=== PATIENT | female | born 1935 | race Caucasian/White ===

== ENCOUNTER 2018-07-24 07:57 | Outpatient (CLI) | payer MEDICARE ==
--- NOTE | 2018-07-24 11:05 | HP ---
DATE OF SERVICE: 07/24/2018 HISTORY OF PRESENT ILLNESS: Ms. Perfecto Shetty is a very pleasant 83-year-old accompanied by her daug hter who presents to the Wound Center for evaluation of a sacral pressure ulceration. The patient pr esently resides at an assisted living facility, [facility]. The patient's daughter states th at Ms. Shetty fell in 06/2017 and underwent left hip surgery, ORIF in [place], [place]. The patient's daughter states that Ms. Shetty remained in the hospital for 1 week after her fall. The patient's d aughter states that she was then transferred to [facility] where the sacral wound developed. At t his time the patient was being seen by Dr. Chappell and underwent intraoperative debridement of her sac ral wound. The patient was subsequently transferred to a jail care facility, [place] in [place] and underwent flap placement by Dr. Gabe Shultz. Subsequently, the patient received wound care b phil Negron. The patient was then transferred to [facility], also in [place] and since 2017 has been in her present facility in [facility]. The patient's daughter states that Dr. Chappell h as been seeing the patient for wound care since March of this year. The patient was referred to the und Center by Dr. Chappell on 07/08/2018. The patient's daughter states that treatments for the wound have included Betadine and Aquacel AG. PAST MEDICAL HISTORY: 1. Congestive heart failure. 2. Diabetes mellitus. 3. Coronary artery disease. 4. Hypertension. 5. Hypothyroidism. PAST SURGICAL HISTORY: 1. Intraoperative debridement of sacral pressure ulceration. 2. Flap placement for treatment of sacral pressure ulceration. 3. Cholecystectomy. 4. Back surgery x2. 5. Hysterectomy. 6. Pacemaker/defibrillator placement. 7. Left hip surgery, ORIF after a fall. MEDICATIONS: The patient does not have a list of her medications with her today. She states her med ications; however, include levothyroxine, Entresto, Januvia and magnesium. ALLERGIES: No known diagnosed allergies. SOCIAL HISTORY: Negative for tobacco use. The patient admits to the occasional consumption of alcoh ol. FAMILY HISTORY: Significant for coronary artery disease. The patient states that her sister, william r, grandfather and 2 brothers were diagnosed with coronary artery disease. Family history is also si gnificant for diabetes mellitus. The patient states that her mother and grandmother were both diagno sed with diabetes mellitus. PHYSICAL EXAMINATION: VITAL SIGNS: Temperature 97.8, pulse 66, respirations 20, blood pressure 141/63. Accu-Chek 123. GENERAL: This is an 83-year-old female lying on stretcher in examination room in no acute distress. HEENT: Normocephalic, atraumatic. NECK: No nuchal rigidity. CHEST: Clear to auscultation. CARDIAC: Regular rate and rhythm. ABDOMEN: Soft. EXTREMITIES: No clubbing or cyanosis. BACK: A sacral wound is present which measures approximately 2.2 x 4.2 cm. Granulation tissue is pr esent within the wound margins, albeit of poor quality. Nonviable tissue present within the wound ma rgins was debrided with an excisional full-thickness debridement. No purulent drainage is associated with the wound. No erythema of the skin surrounding the wound is present. No maceration of the ski n of the periwound is noted. NEUROLOGIC: Grossly nonfocal. ASSESSMENT AND PLAN: 1. Sacral pressure ulceration as described above. The dimensions of the wound today as stated above are approximately 2.2 x 4.2 cm. Dressing changes of Medihoney, gauze and Mepilex will be initiated today. These dressing changes are to be performed 3 times per week after cleansing and irrigation wi th the assistance of Home Health. No antibiotics will be prescribed today based upon the appearance of the wound. I will see Ms. Shetty again in 2 weeks. The importance of nutrition and offloading i n achieving the healing of the ulceration have been discussed with the patient and her daughter. Ord ers will be transmitted to Home Health for albumin and prealbumin levels. 2. Diabetes mellitus. The patient's Accu-Chek in clinic today is 123. The patient has been told th at for optimal wound healing, her blood glucoses should remain below 150. 3. Congestive heart failure. 4. Coronary artery disease. 5. Hypertension. 6. Hypothyroidism.
== END 2018-07-24 07:58 | disposition home or self-care (01) ==
LOC: WCC 07:57
PROVIDERS: ATTEND Family Medicine
DX: E11.622 Type 2 diabetes mellitus with other skin ulcer (principal); L89.159 Pressure ulcer of sacral region, unspecified stage; I11.0 Hypertensive heart disease with heart failure; I50.9 Heart failure, unspecified; I25.10 Atherosclerotic heart disease of native coronary artery without angina pectoris; E03.9 Hypothyroidism, unspecified
CPT/HCPCS: 36416

== ENCOUNTER 2018-08-15 10:05 | Outpatient (CLI) | payer MEDICARE ==
--- NOTE | 2018-08-15 12:30 | PRG ---
DATE OF SERVICE: 08/15/2018 HISTORY: Ms. Perfecto Shetty is a very pleasant 83-year-old accompanied by her daughter, who presents to the Wound Center for evaluation of a sacral pressure ulceration. The patient currently resides at [facility] in [facility]. The patient's daughter previously stated that Ms. Doreen rodriguez fell in 06/2017 and underwent left hip surgery, ORIF in [place], [place]. The patient's daughter st ated that Ms. Shetty remained in the hospital for 1 week after her fall. The patient's daughter sta socrates that she was then transferred to [facility] where the sacral wound developed. At this time, t he patient was being seen by Dr. Chappell and underwent intraoperative debridement of her sacral wound. The patient was subsequently transferred to a long-term care facility, [facility] in [place] and under went flap placement by Dr. Gabe Shultz. Subsequently, the patient received wound care by Dr. Gal patino. The patient was then transferred to [facility] also in [place] and since 05/17/2018 has be en in her present facility in [facility]. The patient's daughter stated that Dr. Chappell had been see ing the patient for wound care since March of this year. The patient was referred to the Wound Center by Dr. Chappell on 07/08/2018. The patient's daughter stated that treatments for the wound had include d Betadine and Aquacel AG. After being seen in the Wound Center, the patient was placed on dressing changes of Medihoney, gauze, and Mepilex 3 times per week after cleansing and irrigation with the [facility]. PHYSICAL EXAMINATION: VITAL SIGNS: Temperature 97.6, pulse 68, respirations 21, blood pressure 126/58. Accu-Chek 215. BACK: A sacral wound is present, which measures approximately 3.0 x 1.5 cm. The dimensions of the w ound at the time of the patient's visit on 07/24/2018 were approximately 2.2 x 4.2 cm. Granulation t issue is present within the wound margins again of poor quality. Nonviable tissue present within the wound margins was debrided with an excisional full-thickness debridement. No purulent drainage is a ssociated with the wound. No erythema of the skin surrounding the wound is present. No maceration o f the skin of the periwound is noted. ASSESSMENT AND PLAN: 1. Sacral pressure ulceration as described above. Dressing changes of Medihoney gauze and Mepilex w ill be continued 3 times per week after cleansing and irrigation with the assistance of Home Health. I will see Ms. Shetty again in 3 weeks. Again, the importance of nutrition and offloading in achie ving the healing of the ulceration had been discussed with the patient and her daughter. The results of the patient's lab work will be obtained. Specifically, the results of the albumin and prealbumin levels. 2. Diabetes mellitus. The patient's Accu-Chek in clinic today is 215. The patient has been reminde d that for optimal wound healing, her blood glucoses should remain below 150. 3. Congestive heart failure. 4. Coronary artery disease. 5. Hypertension. 6. Hypothyroidism.
[2018-08-15] MEDS ORDERED: Sodium Chloride 0.9% 15 ML NEB ONE (20:27)
== END 2018-08-15 10:06 | disposition home or self-care (01) ==
LOC: WCC 10:05
PROVIDERS: ATTEND Family Medicine
DX: E11.622 Type 2 diabetes mellitus with other skin ulcer (principal); L89.159 Pressure ulcer of sacral region, unspecified stage; I11.0 Hypertensive heart disease with heart failure; I50.9 Heart failure, unspecified; I25.10 Atherosclerotic heart disease of native coronary artery without angina pectoris; E03.9 Hypothyroidism, unspecified
CPT/HCPCS: 11042; 36416; A4218

== ENCOUNTER 2018-09-04 11:23 | Outpatient (CLI) | payer MEDICARE ==
--- NOTE | 2018-09-04 12:44 | PRG ---
DATE OF SERVICE: 09/04/2018 HISTORY: Ms. Perfecto Shetty is a very pleasant 83-year-old, accompanied by her daughter, who presents to the Wound Center for evaluation of a sacral pressure ulceration. The patient currently resides a assisted living facility, [place] [facility]. The patient's daughter previously stated that Ms. Franky brady fell in 06/2017 and underwent left hip surgery, ORIF, in [place], [place]. The patient's daughter stated that Ms. Shetty remained in the hospital for 1 week after her fall. The patient's daughter stated that she was then transferred to [facility] where the sacral wound developed. At this time , the patient was being seen by Dr. Bowles and underwent intraoperative debridement of her sacral wou nd. The patient was subsequently transferred to a long-term care facility, [facility] in [place], and u nderwent flap placement by Dr. Gabe Shultz. Subsequently, the patient received wound care by Dr. Negron. The patient was then transferred to [facility] also in [place], and since 05/17/2018 h as been in her present facility in [facility]. The patient's daughter stated that Dr. Bowles had bee n seeing the patient for wound care since March of this year. The patient was referred to the Wound Ce nter by Dr. Bowles on 07/08/2018. The patient's daughter stated that treatments for the wound had in cluded Betadine and Aquacel AG. After being seen in the Wound Center, the patient was placed on dres sing changes of Medihoney, gauze, and Mepilex 3 times per week after cleansing and irrigation with th e assistance of Home Health. PHYSICAL EXAMINATION: VITAL SIGNS: Temperature 97.7, pulse 72, respirations 18, blood pressure 169/68. BACK: A sacral wound is present, which measures approximately 3.4 x 1.5 cm. Granulation tissue is p resent within the wound margins. Nonviable tissue present within the wound margins was debrided with an excisional full-thickness debridement. No purulent drainage is associated with the wound. No er ythema of the skin surrounding the wound is present. No maceration of the skin of the periwound is n oted. ASSESSMENT AND PLAN: 1. Sacral pressure ulceration as described above. Dressing changes of Medihoney, gauze, and Mepilex will be continued 3 times per week after cleansing and irrigation with the assistance of Home Health . I will see Ms. Shetty again in 3 weeks. Again, the importance of nutrition and offloading in ach ieving the healing of the ulceration has been discussed with the patient and her daughter. 2. Diabetes mellitus. Accu-Cheks will be obtained at the time of the patient's clinic visits. The patient has been reminded that, for optimal wound healing, her blood glucoses should remain below 150 . 3. Congestive heart failure. 4. Coronary artery disease. 5. Hypertension. 6. Hypothyroidism.
[2018-09-04] MEDS ORDERED: Sodium Chloride 0.9% 15 ML NEB ONE (15:00)
== END 2018-09-04 11:24 | disposition home or self-care (01) ==
LOC: WCC 11:23
PROVIDERS: ATTEND Family Medicine
DX: E11.622 Type 2 diabetes mellitus with other skin ulcer (principal); L89.159 Pressure ulcer of sacral region, unspecified stage; I11.0 Hypertensive heart disease with heart failure; I50.9 Heart failure, unspecified; I25.10 Atherosclerotic heart disease of native coronary artery without angina pectoris; E03.9 Hypothyroidism, unspecified
CPT/HCPCS: 11042; A4218

== ENCOUNTER 2018-09-25 10:50 | Outpatient (CLI) | payer MEDICARE ==
[~2018-09-25 10:50] MED LIST: Sodium Chloride 0.9% 15 ML NEB ONE
--- NOTE | 2018-09-25 13:22 | PRG ---
DATE OF SERVICE: 09/25/2018 HISTORY: Ms. Perfecto Shetty is a very pleasant 83-year-old, accompanied by her daughter, who presents to the Wound Center for evaluation of a sacral pressure ulceration. The patient presently resides a t an assisted living facility [place] at [facility]. The patient's daughter states that Ms. Shetty pre viously received a trial of negative pressure therapy for her sacral pressure ulceration. Since the patient's last visit, Ms. Shetty has been receiving dressing changes of Medihoney with the assistanc e of Home Health. The patient has no complaints today. She denies any fever or chills. PHYSICAL EXAMINATION: VITAL SIGNS: Temperature 97.9, pulse 66, respirations 17, blood pressure 129/56 Accu-Chek 139. BACK: A sacral wound is present, which measures approximately 3.0 x 1.5 cm. Granulation tissue is p resent within the wound margins. Nonviable tissue present within the wound margins was debrided with an excisional full-thickness debridement. No purulent drainage is associated with the wound. No er ythema of the skin surrounding the wound is present. No maceration of the skin of the periwound is n oted. ASSESSMENT AND PLAN: 1. Sacral pressure ulceration as described above. Dressing changes of Medihoney, gauze, and Mepilex will be continued 3 times per week after cleansing and irrigation with the assistance of Home Health . I will see Ms. Shetty again in 4 weeks. Again, the importance of nutrition and offloading in ach ieving the healing of the ulceration has been discussed with both the patient and her daughter. 2. Diabetes mellitus. The patient's Accu-Chek in clinic today is 139. The patient has been reminde d that, for optimal wound healing, her blood glucoses should remain below 150. 3. Congestive heart failure. 4. Coronary artery disease. 5. Hypertension. 6. Hypothyroidism.
== END 2018-09-25 10:51 | disposition home or self-care (01) ==
LOC: WCC 10:50
PROVIDERS: ATTEND Family Medicine
DX: L89.159 Pressure ulcer of sacral region, unspecified stage (principal); E11.9 Type 2 diabetes mellitus without complications; I11.0 Hypertensive heart disease with heart failure; I50.9 Heart failure, unspecified; I25.10 Atherosclerotic heart disease of native coronary artery without angina pectoris; E03.9 Hypothyroidism, unspecified
CPT/HCPCS: 11042; A4218

== ENCOUNTER 2018-10-23 13:14 | Outpatient (CLI) | payer MEDICARE ==
--- NOTE | 2018-10-23 15:06 | PRG ---
DATE OF SERVICE: 10/23/2018 HISTORY: Ms. Perfecto Shetty is a very pleasant 83-year-old accompanied by her daughter, who presents to the Wound Center for evaluation of a sacral pressure ulceration. The patient currently resides at an assisted-living facility, [place] [facility]. The patient's daughter previously stated that Ms. Shetty received a trial of negative-pressure therapy for her sacral pressure ulceration. Since the patient's last visit, Ms. Shetty has been receiving dressing changes of Medihoney 3 times per week after cleansing and irrigation with the assistance of Home Health. Ms. Shetty has no complaints today. She denies any fever or chills. PHYSICAL EXAMINATION: VITAL SIGNS: Temperature 97.4, pulse 75, respirations 18, blood pressure 126/56. Accu-Chek 128. BACK: A sacral wound is present, which measures approximately 2.5 x 1.0 cm. The dimensions of the wound at the time of the patient's visit on 09/25/2018 were approximately 3.0 x 1.5 cm. Granulation tissue is present within the wound margins. No purulent drainage is associated with the wound. No erythema of the skin surrounding the wound is present. No laceration of the skin of the periwound is noted. Hyalomatrix was applied to the wound bed with the silicone layer facing outwards. The silicone layer was fenestrated prior to the application of Hyalomatrix to the bed of the sacral ulceration. The wound was then dressed with Adaptic, gauze and sacral Mepilex. The Hyalomatrix was held in place with the use of Steri-Strips and Mastisol. ASSESSMENT AND PLAN: 1. Sacral pressure ulceration as described above. Orders will be transmitted to Home Health for dressing changes of Adaptic, gauze and Mepilex sacral as needed until the patient's followup visit in 1 week. Orders will also be transmitted to the Home Health for the Hyalomatrix secured with Steri-Strips and Mastisol to be left intact at the time of any dressing changes. At the time of the patient's followup visit in 1 week, consideration will be given to another placement of Hyalomatrix. 2. Diabetes mellitus. The patient's Accu-Chek in clinic today in 128. The patient has been reminded that for optimal wound healing, her blood glucoses should remain below 150. 3. Congestive heart failure. 4. Coronary artery disease. 5. Hypertension. 6. Hypothyroidism. Job ID: [id number]
[2018-10-23] MEDS ORDERED: Sodium Chloride 0.9% 15 ML NEB ONE (18:00)
== END 2018-10-23 13:15 | disposition home or self-care (01) ==
LOC: WCC 13:14
PROVIDERS: ATTEND Family Medicine
DX: L89.159 Pressure ulcer of sacral region, unspecified stage (principal); E11.9 Type 2 diabetes mellitus without complications; I11.0 Hypertensive heart disease with heart failure; I50.9 Heart failure, unspecified; I25.10 Atherosclerotic heart disease of native coronary artery without angina pectoris; E03.9 Hypothyroidism, unspecified
CPT/HCPCS: A4218; Q4117

== ENCOUNTER 2018-10-30 11:12 | Outpatient (CLI) | payer MEDICARE | END 2018-10-30 11:13 | disposition home or self-care (01) | LOC: BICMAMMO 11:12 | PROVIDERS: ATTEND Internal Medicine | DX: Z12.31 Encounter for screening mammogram for malignant neoplasm of breast (principal); R92.1 Mammographic calcification found on diagnostic imaging of breast | CPT/HCPCS: 77063; 77067 ==

== ENCOUNTER 2018-10-30 12:50 | Outpatient (CLI) | payer MEDICARE ==
--- NOTE | 2018-10-30 15:01 | PRG ---
DATE OF SERVICE: 10/30/2018 HISTORY: Ms. Perfecto Shetty is a very pleasant 83-year-old, accompanied by her daughter, who presents to the Wound Center for evaluation of a sacral pressure ulceration. At the time of the patient's last visit, Hyalomatrix was applied to the wound bed of the sacral ulceration. The patient has no complaints today. She denies any fever or chills. PHYSICAL EXAMINATION: VITAL SIGNS: Temperature 97.4, pulse 72, respirations 17, and blood pressure 137/66. Accu-Chek 158. BACK: A sacral wound is present, which measures approximately 2.8 x 1.5 cm. Granulation tissue is present within the wound margins. No purulent drainage is associated with the wound. No cellulitis of the sacral region is appreciated. No maceration of the skin of the periwound is noted. ASSESSMENT AND PLAN: 1. Sacral pressure ulceration as described above. Dressing changes of Medihoney 3 times per week after cleansing and irrigation with the assistance of Home Health will be resumed. I will see Ms. Shetty again in 2 to 4 weeks. At this time, consideration will be given to another placement of Hyalomatrix. 2. Diabetes mellitus. The patient's Accu-Chek in clinic today is 158. The patient has been reminded that for optimal wound healing, her blood glucoses should remain below 150. 3. Congestive heart failure. 4. Coronary artery disease. 5. Hypertension. 6. Hypothyroidism. Job ID: [id number]
== END 2018-10-30 12:51 | disposition home or self-care (01) ==
LOC: WCC 12:50
PROVIDERS: ATTEND Family Medicine
DX: E11.622 Type 2 diabetes mellitus with other skin ulcer (principal); L89.159 Pressure ulcer of sacral region, unspecified stage; I25.10 Atherosclerotic heart disease of native coronary artery without angina pectoris; I11.0 Hypertensive heart disease with heart failure; I50.9 Heart failure, unspecified; E03.9 Hypothyroidism, unspecified
CPT/HCPCS: 36416

== ENCOUNTER 2018-12-02 11:35 | Outpatient (CLI) | payer MEDICARE ==
--- NOTE | 2018-12-02 14:03 | PRG ---
DATE OF SERVICE: 12/02/2018 HISTORY: Ms. Perfecto Shetty is a very pleasant 83-year-old, accompanied by her daughter, who presents to the Wound Center for evaluation of a sacral pressure ulceration. The patient has received treatment with Hyalomatrix for the ulceration. Since the patient's last visit, Ms. Shetty has been receiving dressing changes of Medihoney 3 times per week after cleansing and irrigation with the assistance of Home Health. The patient has no complaints today. She denies any fever or chills. PHYSICAL EXAMINATION: VITAL SIGNS: Temperature 97.7, pulse 73, and blood pressure 141/64. BACK: A sacral wound is present, which measures approximately 2.7 x 0.7 x 0.7 cm. Granulation tissue is present within the wound margins. No purulent drainage is associated with the wound. No erythema of the skin surrounding the wound is present. No maceration of the skin of the periwound is noted. ASSESSMENT AND PLAN: 1. Sacral pressure ulceration as described above. Dressing changes of Medihoney 3 times per week after cleansing and irrigation with the assistance of Home Health will be continued. I will see Ms. Shetty again in 4 weeks. 2. Diabetes mellitus. Accu-Cheks will be obtained at the time of the patient's clinic visits. The patient has been reminded that for optimal wound healing, her blood glucoses should remain below 150. 3. Congestive heart failure. 4. Coronary artery disease. 5. Hypertension. 6. Hypothyroidism. Job ID: [id number]
== END 2018-12-02 11:36 | disposition home or self-care (01) ==
LOC: WCC 11:35
PROVIDERS: ATTEND Family Medicine
DX: L89.159 Pressure ulcer of sacral region, unspecified stage (principal); E11.9 Type 2 diabetes mellitus without complications; I11.0 Hypertensive heart disease with heart failure; I50.9 Heart failure, unspecified; I25.10 Atherosclerotic heart disease of native coronary artery without angina pectoris; E03.9 Hypothyroidism, unspecified
CPT/HCPCS: 97602; A4218

== ENCOUNTER 2019-01-01 13:21 | Outpatient (CLI) | payer MEDICARE ==
--- NOTE | 2019-01-01 14:01 | PRG ---
DATE OF SERVICE: 01/01/2019 HISTORY: Ms. Perfecto Shetty is a very pleasant 83-year-old, accompanied by her daughter, who presents to the Wound Center for evaluation of a sacral pressure ulceration. The patient has received treatment with Hyalomatrix for the ulceration. Since the patient's last visit, Ms. Shetty has been receiving dressing changes of Medihoney 3 times per week after cleansing and irrigation with the assistance of Home Health. Ms. Shetty has no complaints today. She denies any fever or chills. PHYSICAL EXAMINATION: VITAL SIGNS: Temperature 97.6, pulse 71, respirations 21, blood pressure 152/60. Accu-Chek 138. BACK: A sacral wound is present, which measures approximately 1.2 x 0.5 cm. Granulation tissue is present within the wound margins. No purulent drainage is associated with the wound. No erythema of the skin surrounding the wound is present. No maceration of the skin of the periwound is noted. ASSESSMENT AND PLAN: 1. Sacral pressure ulceration as described above. Dressing changes of Medihoney 3 times per week after cleansing and irrigation with the assistance of Home Health will be continued. I will see Ms. Shetty again in 4 weeks. 2. Diabetes mellitus. The patient's Accu-Chek in clinic today is 138. The patient has been reminded that for optimal wound healing. Her blood glucoses should remain below 150. 3. Congestive heart failure. 4. Coronary artery disease. 5. Hypertension. 6. Hypothyroidism. Job ID: [id number]
== END 2019-01-01 13:22 | disposition home or self-care (01) ==
LOC: WCC 13:21
PROVIDERS: ATTEND Family Medicine
DX: L89.159 Pressure ulcer of sacral region, unspecified stage (principal); I11.0 Hypertensive heart disease with heart failure; I50.9 Heart failure, unspecified; E11.9 Type 2 diabetes mellitus without complications; I25.10 Atherosclerotic heart disease of native coronary artery without angina pectoris; E03.9 Hypothyroidism, unspecified
CPT/HCPCS: 97602; A4218

== ENCOUNTER 2019-01-30 14:01 | Outpatient (CLI) | payer MEDICARE ==
--- NOTE | 2019-01-30 13:34 | PRG ---
DATE OF SERVICE: 01/30/2019 HISTORY: Ms. Perfecto Shetty is a very pleasant 83-year-old, accompanied by her daughter, who presents to the Wound Center for evaluation of a sacral pressure ulceration. The patient has received treatment with Hyalomatrix for the ulceration. Since the patient's last visit, Ms. Shetty has been receiving dressing changes of Medihoney 3 times per week after cleansing and irrigation with the assistance of Home Health. The patient has no complaints today. She denies any fever or chills. PHYSICAL EXAMINATION: VITAL SIGNS: Temperature 97.5, pulse 83, blood pressure 148/60, Accu-Chek 141. BACK: A sacral wound is present, which measures approximately 1.1 x 0.5 cm. The dimensions of the wound at the time of the patient's last visit were approximately 1.2 x 0.5 cm. Granulation tissue is present within the wound margins albeit of poor quality. No purulent drainage is associated with the wound. No erythema of the skin surrounding the wound is present. No maceration of the skin of the periwound is noted. ASSESSMENT AND PLAN: 1. Sacral pressure ulceration as described above. Dressing changes of Medihoney 3 times per week after cleansing and irrigation with the assistance of Home Health will be continued. I will see Ms. Shetty again in 4 weeks. 2. Diabetes mellitus. The patient's Accu-Chek in clinic today is 141. The patient has been reminded that for optimal wound healing, her blood glucoses should remain below 150. 3. Congestive heart failure. 4. Coronary artery disease. 5. Hypertension. 6. Hypothyroidism. Job ID: [id number]
[2019-01-30] MEDS ORDERED: Sodium Chloride 0.9% 15 ML NEB ONE (18:00)
== END 2019-01-30 14:02 | disposition home or self-care (01) ==
LOC: WCC 14:01
PROVIDERS: ATTEND Family Medicine
DX: E11.622 Type 2 diabetes mellitus with other skin ulcer (principal); L89.159 Pressure ulcer of sacral region, unspecified stage; I11.0 Hypertensive heart disease with heart failure; I50.9 Heart failure, unspecified; I25.10 Atherosclerotic heart disease of native coronary artery without angina pectoris; E03.9 Hypothyroidism, unspecified
CPT/HCPCS: 97602; A4218

== ENCOUNTER 2019-03-06 15:13 | Outpatient (CLI) | payer MEDICARE ==
--- NOTE | 2019-03-06 15:19 | PRG ---
DATE OF SERVICE: 03/06/2019 HISTORY: Ms. Perfecto Shetty is a very pleasant 83-year-old, accompanied by her daughter, who presents to the Wound Center for evaluation of a sacral pressure ulceration. The patient has received treatment with Hyalomatrix for the ulceration. Since the patient's last visit, Ms. Shetty has been receiving dressing changes of Medihoney 3 times per week after cleansing and irrigation with the assistance of Home Health. The patient has no complaints today. She denies any fever or chills. The patient will be seeing Dr. Webber next week. PHYSICAL EXAMINATION: VITAL SIGNS: Stable. Afebrile. Accu-Chek 124. BACK: A sacral wound is present, which measures approximately 1.0 x 0.3 cm. The dimensions of the wound at the time of the patient's last visit were approximately 1.1 x 0.5 cm. Granulation tissue is present within the wound margins albeit of poor quality. No purulent drainage is associated with the wound. No erythema of the skin surrounding the wound is present. No maceration of the skin of the periwound is noted. ASSESSMENT AND PLAN: 1. Sacral pressure ulceration as described above. Dressing changes of Medihoney will be continued 3 times per week after cleansing and irrigation with the assistance of Home Health. I will see Ms. Shetty again in 5 weeks. The patient has an appointment with Dr. Webber in 1 week. 2. Diabetes mellitus. The patient's Accu-Chek in clinic today is 124. The patient has been reminded that for optimal wound healing, her blood glucoses should remain below 150. 3. Congestive heart failure. 4. Coronary artery disease. 5. Hypertension. 6. Hypothyroidism. Job ID: [id number]
== END 2019-03-06 15:14 | disposition home or self-care (01) ==
LOC: WCC 15:13
PROVIDERS: ATTEND Family Medicine
DX: E11.622 Type 2 diabetes mellitus with other skin ulcer (principal); L98.429 Non-pressure chronic ulcer of back with unspecified severity; I11.0 Hypertensive heart disease with heart failure; I50.9 Heart failure, unspecified; I25.10 Atherosclerotic heart disease of native coronary artery without angina pectoris; E03.9 Hypothyroidism, unspecified
CPT/HCPCS: 36416

== ENCOUNTER 2019-04-23 16:23 | Outpatient (CLI) | payer MEDICARE ==
--- NOTE | 2019-04-23 13:39 | PRG ---
DATE OF SERVICE: 04/23/2019 HISTORY: Ms. Perfecto Shetty is a very pleasant 83-year-old, accompanied by her daughter, who presents to the [facility] for evaluation of a sacral pressure ulceration. The patient has received treatment with Hyalomatrix for her ulceration. Since the patient's last visit, Ms. Shetty has been receiving dressing changes of Medihoney 3 times per week after cleansing and irrigation with the assistance of Home Health. The patient has no complaints today. She denies any fever or chills. Since the patient's last visit to the Wound Center, Ms. Shetty has been seen by Dr. Webber, who did not recommend surgical closure of the patient's sacral ulceration. PHYSICAL EXAMINATION: VITAL SIGNS: Temperature 97.5, pulse 80, respirations 16, and blood pressure 86/55. Accu-Chek 103. BACK: A sacral wound is present, which measures approximately 2.0 x 0.8 cm. Granulation tissue is present within the wound margins, still of poor quality. No purulent drainage is associated with the wound. No erythema of the skin surrounding the wound is present. No maceration of the skin of the periwound is noted. ASSESSMENT AND PLAN: 1. Sacral pressure ulceration as described above. Dressing changes of Medihoney alginate are to be performed 3 times per week after cleansing and irrigation with the assistance of Home Health. I will see Ms. Shetty again in 6 weeks. 2. Diabetes mellitus. The patient's Accu-Chek in clinic today is 103. The patient has been reminded that for optimal wound healing her blood glucoses should remain below 150. 3. Congestive heart failure. 4. Coronary artery disease. 5. Hypertension. 6. Hypothyroidism. Job ID: [id number]
[2019-04-23] MEDS ORDERED: Sodium Chloride 0.9% 15 ML NEB ONE (18:00)
== END 2019-04-23 16:24 | disposition home or self-care (01) ==
LOC: WCC 16:23
PROVIDERS: ATTEND Family Medicine
DX: E11.622 Type 2 diabetes mellitus with other skin ulcer (principal); L89.159 Pressure ulcer of sacral region, unspecified stage; I11.0 Hypertensive heart disease with heart failure; I50.9 Heart failure, unspecified; I25.10 Atherosclerotic heart disease of native coronary artery without angina pectoris; E03.9 Hypothyroidism, unspecified
CPT/HCPCS: 97602; A4218

== ENCOUNTER 2019-06-04 13:31 | Outpatient (CLI) | payer MEDICARE ==
--- NOTE | 2019-06-04 11:42 | PRG ---
DATE OF SERVICE: 06/04/2019 HISTORY: Ms. Perfecto Shetty is a very pleasant 84-year-old, accompanied by her daughter, who presents to the [facility]ound Center for evaluation of a sacral pressure ulceration. The patient has received treatment with Hyalomatrix for her ulceration. Since the patient's last visit, Ms. Shetty has been receiving dressing changes of Medihoney 3 times per week after cleansing and irrigation with the assistance of Home Health. The patient has no complaints today. She denies any fever or chills. The patient was recently seen by Dr. Webber, who did not recommend surgical closure of the patient's sacral ulceration. PHYSICAL EXAMINATION: VITAL SIGNS: Temperature 97.6, pulse 88, respirations 21, and blood pressure 126/60. Accu-Chek 95. BACK: A sacral wound is present, which measures approximately 1.5 x 0.3 cm. The dimensions of the wound at the time of the patient's visit on 04/23/2019 were approximately 2.0 x 0.8 cm. A tunnel at the inferior aspect of the wound is present and is approximately 1 cm in length. Granulation tissue is present within the wound margins, albeit of poor quality. No purulent drainage is associated with the wound. No erythema of the skin surrounding the wound is present. No maceration of the skin of the periwound is noted. ASSESSMENT AND PLAN: 1. Sacral pressure ulceration as described above. Dressing changes of Medihoney alginate will be continued 3 times per week after cleansing and irrigation with the assistance of Home Health. I will see Ms. Shetty again in 6 weeks. 2. Diabetes mellitus. The patient's Accu-Chek in clinic today is 95. The patient has been reminded that for optimal wound healing, her blood glucoses should remain below 150. 3. Congestive heart failure. 4. Coronary artery disease. 5. Hypertension. 6. Hypothyroidism. Job ID: [id number]
== END 2019-06-04 13:32 | disposition home or self-care (01) ==
LOC: WCC 13:31
PROVIDERS: ATTEND Family Medicine
DX: L89.159 Pressure ulcer of sacral region, unspecified stage (principal); E11.9 Type 2 diabetes mellitus without complications; I25.10 Atherosclerotic heart disease of native coronary artery without angina pectoris; I11.0 Hypertensive heart disease with heart failure; I50.9 Heart failure, unspecified
CPT/HCPCS: 97602; A4218

== ENCOUNTER 2019-07-23 10:47 | Outpatient (CLI) | payer MEDICARE ==
--- NOTE | 2019-07-23 11:16 | PRG ---
DATE OF SERVICE: 07/23/2019 HISTORY: Ms. Perfecto Shetty is a very pleasant 84-year-old, accompanied by her daughter, who presents to the wound center for evaluation of a sacral pressure ulceration. The patient has received treatment with Hyalomatrix for her ulceration. Since the patient's last visit, Ms. Shetty has been receiving dressing changes of Medihoney alginate three times per week after cleansing and irrigation with the assistance of home health. The patient has no complaints today. She denies any fever or chills. The patient has been seen by Dr. Webber, who did not recommend surgical closure of the patient's sacral ulceration. PHYSICAL EXAMINATION: VITAL SIGNS: Temperature 97.8, pulse 84, respirations 19, and blood pressure 166/60. Accu-Chek 130. BACK: A sacral wound is present, which measures approximately 1.2 x 0.4 cm. The dimensions of the wound at the time of the patient's visit on 06/04/2019 were approximately 1.5 x 0.3 cm. A tunnel at the inferior aspect of the wound is present and is approximately 1.5 cm in length. Granulation tissue is present within the wound margins albeit of poor quality. No purulent drainage is associated with the wound. No erythema of the skin surrounding the wound is present. No maceration of the skin of the periwound is noted. ASSESSMENT AND PLAN: 1. Sacral pressure ulceration as described above. Dressing changes of Medihoney alginate will be discontinued. Dressing changes of Hydrofera Blue will be initiated today. These dressing changes are to be performed 3 times per week after cleansing and irrigation with the assistance of home health. I will see Ms. Shetty again in 6 to 8 weeks. 2. Diabetes mellitus. The patient's Accu-Chek in clinic today is 130. The patient has been reminded that for optimal wound healing, her blood glucoses should remain below 150. 3. Congestive heart failure. 4. Coronary artery disease. 5. Hypertension. 6. Hypothyroidism. Job ID: [id number]
== END 2019-07-23 10:48 | disposition home or self-care (01) ==
LOC: WCC 10:47
PROVIDERS: ATTEND Family Medicine
DX: E11.622 Type 2 diabetes mellitus with other skin ulcer (principal); L89.159 Pressure ulcer of sacral region, unspecified stage; I11.0 Hypertensive heart disease with heart failure; I50.9 Heart failure, unspecified; I25.10 Atherosclerotic heart disease of native coronary artery without angina pectoris; E03.9 Hypothyroidism, unspecified
CPT/HCPCS: A4218

== ENCOUNTER 2019-10-30 11:08 | Outpatient (CLI) | payer MEDICARE ==
--- NOTE | 2019-10-30 17:04 | PRG ---
DATE OF SERVICE: 10/30/2019 SUBJECTIVE: Ms. Perfecto Shetty is a very pleasant 84-year-old accompanied by her daughter, who presents to the [facility]ound Center for evaluation of a sacral pressure ulceration. The patient has received treatment with Hyalomatrix for her ulceration. Since the patient's last visit to the Wound Center on 07/23/2019, the patient has been receiving most recently dressing changes of PluroGel three times per week after cleansing and irrigation. The patient has no complaints today. She denies any fever or chills. The patient has been seen by Dr. Webber, who did not recommend surgical closure of the patient's sacral ulceration. OBJECTIVE: VITAL SIGNS: Temperature 98.1, pulse 67, blood pressure 153/67. Accu-Chek 124. BACK: A sacral wound is present, which measures approximately 0.9 x 0.3 cm. The dimensions of the wound at the time of the patient's visit on 07/23/2019 were approximately 1.2 x 0.4 cm. A tunnel at the 12 o'clock position is present and is approximately 0.9 cm in length. Granulation tissue is present within the wound margins, albeit of poor quality. No purulent drainage is associated with the wound. No erythema of the skin surrounding the wound is present. No maceration of the skin of the periwound is noted. ASSESSMENT AND PLAN: 1. Sacral pressure ulceration as described above. Dressing changes of PluroGel will be continued 3 times per week after cleansing and irrigation. The preceding dressing changes are to be performed with the assistance of Home Health. I have asked the patient to schedule a followup appointment in the [facility] in 4 weeks. 2. Diabetes mellitus. The patient's Accu-Chek in clinic today is 124. The patient has been reminded that for optimal wound healing, her blood glucoses should remain below 150. 3. Congestive heart failure. 4. Coronary artery disease. 5. Hypertension. 6. Hypothyroidism. Job ID: [id number]
== END 2019-10-30 11:09 | disposition home or self-care (01) ==
LOC: WCC 11:08
PROVIDERS: ATTEND Family Medicine
DX: E11.622 Type 2 diabetes mellitus with other skin ulcer (principal); L89.159 Pressure ulcer of sacral region, unspecified stage; I11.0 Hypertensive heart disease with heart failure; I50.9 Heart failure, unspecified; I25.10 Atherosclerotic heart disease of native coronary artery without angina pectoris; E03.9 Hypothyroidism, unspecified

== ENCOUNTER 2019-12-10 10:36 | Outpatient (CLI) | payer MEDICARE ==
--- NOTE | 2019-12-10 11:37 | MMO ---
Bilateral MAMMO Bilat Screen [facility]. CLINICAL HISTORY: Patient is 84 years old and is seen for screening. The patient has no family history of breast cancer. The patient has no personal history of cancer. The patient has a history of bilateral Excisional Biopsy more than 10 years ago - benign. VIEWS: The views performed were: bilateral craniocaudal with tomosynthesis and bilateral mediolateral oblique with tomosynthesis. FILMS COMPARED: The present examination has been compared to prior imaging studies performed at [facility] on 01/01/2015, 01/24/2016, 01/29/2017 and 10/30/2018. This study has been interpreted with the assistance of computer-aided detection. MAMMOGRAM FINDINGS: There are scattered fibroglandular densities. Finding 1: There are stable benign appearing calcifications seen in both breasts. Finding 2: There are stable post operative changes seen in both breasts. There are no suspicious masses, suspicious calcifications, or new areas of architectural distortion. IMPRESSION: THERE IS NO MAMMOGRAPHIC EVIDENCE OF MALIGNANCY. A ROUTINE FOLLOW-UP MAMMOGRAM IN 1 YEAR IS RECOMMENDED. THE RESULTS OF THIS EXAM WERE SENT TO THE PATIENT. ACR BI-RADS Category 2 - Benign finding MAMMOGRAPHY NOTE: 1. A negative mammogram report should not delay a biopsy if a dominant of clinically suspicious mass is present. 2. Approximately 10% to 15% of breast cancers are not detected by mammography. 3. Adenosis and dense breasts may obscure an underlying neoplasm. Reported by: LINDA URRUTIA MD Electonically Signed: [id number]
== END 2019-12-10 10:37 | disposition home or self-care (01) ==
LOC: BICMAMMO 10:36
PROVIDERS: ATTEND Internal Medicine
DX: Z12.31 Encounter for screening mammogram for malignant neoplasm of breast (principal); Z91.89 Other specified personal risk factors, not elsewhere classified
CPT/HCPCS: 77063; 77067

== ENCOUNTER 2020-07-22 10:52 | Inpatient (IN) | payer MEDICARE, OTHER ==
--- NOTE | 2020-07-22 11:47 | RAD ---
RIGHT HIP 2 VIEWS: Date: 07/22/2020 PROVIDED CLINICAL HISTORY: Pain status post injury. FINDINGS: There is a displaced intertrochanteric right proximal femoral fracture with associated coxa vara. Rig ht hip joint space appears maintained. Alignment appears otherwise anatomic. No additional fracture i s evident. IMPRESSION: Displaced intertrochanteric right proximal femoral fracture. POS: SOHEILA
[2020-07-22] MEDS ORDERED: Ondansetron PF 4 MG/2 ML Vial ONE (12:46)
[2020-07-22] MEDS ORDERED: Morphine 4 MG/ML VIAL ONE ×2 (12:46→16:34)
--- NOTE | 2020-07-22 12:47 | RAD ---
XR Chest 1 View Portable History: Fall Comparison: None. Findings: Lungs are clear. Heart size is enlarged. Old right humeral neck fracture. AICD/pacer leads appear in good position. Multiple mid thoracic spine compression deformities are age indeterminate given lack of comparison ex ams. Impression: 1. No acute intrathoracic abnormality. 2. Mild cardiomegaly. 3. Multiple mid thoracic spine compression deformities are age indeterminate given lack of comparison exams.
--- NOTE | 2020-07-22 12:48 | RAD ---
RIGHT WRIST RADIOGRAPHS 3 VIEWS: DATE: 07/22/2020. PROVIDED CLINICAL HISTORY: Pain status post injury. FINDINGS: There is diffuse regional osteopenia. On the lateral view, there is evidence for cortical disruption involving the dorsal margin of the distal radius, without displacement. No additional fracture is e vident. Alignment appears anatomic. Joint spaces appear preserved. IMPRESSION: 1. Nondisplaced fracture involving the dorsal aspect of the distal radius. 2. Conspicuous regional osteopenia. POS: SOHEILA
[2020-07-22] MEDS ORDERED: CEFAZOLIN 2 GM in Premix Bag 1 BAG IVPB SCH (13:30)
[2020-07-22 13:46] LABS: #Basophils 0.1 thou/uL (0.0-0.2); #Eosinphils 0.2 thou/uL (0.0-0.7); #Lymphocytes 2.1 thou/uL (1.20-3.40); #Monocytes 0.6 thou/uL (0.11-0.59); #Neutrophils 11.5 thou/uL (1.40-6.50); %Basophils 0.7 % (0.0-1.0); %Eosinophils 1.2 % (0.0-10.0); %Lymphocytes 14.7 % (21.0-51.0); %Neutrophils 79.5 % (42.0-75.0); Hemoglobin 10.8 g/dL (12.0-16.0); Mean Corpuscular HGB CONC 31.5 g/dL (32.0-36.0); Mean Corpuscular Hemoglobin 31.3 pg (27.0-31.0); Mean Corpuscular Volume 99.6 fL (78.0-98.0); Mean Platelet Volume 7.5 fL (7.4-10.4); Platelet Count 191 thou/uL (130-400); RBC Distribution Width 12.7 % (11.5-14.5); Red Blood Cell (RBC) Count 3.45 mill/uL (4.20-5.40); White Blood Cell (WBC) Count 14.5 thou/uL (4.8-10.8)
[2020-07-22 13:54] LABS: INR-International Normal Ratio 1.1; Prothrombin Time 13.7 sec (12.0-14.7)
--- NOTE | 2020-07-22 14:04 | RAD ---
Exam: One view pelvis HISTORY: Fall. Pain. FINDINGS: Diffuse bony mineralization. Previous left hip fracture with incompletely evaluated patient hardware. No perihardware lucency. There is a right intertrochanteric fracture. Visualized bony pelvis appears to be intact. IMPRESSION: Right intertrochanteric fracture.
[2020-07-22 14:13] LABS: Troponin I 0.026 ng/mL (< 0.028)
--- NOTE | 2020-07-22 14:26 | CON ---
DATE OF CONSULTATION: 07/22/2020 CHIEF COMPLAINT: Right hip pain. HISTORY OF PRESENT ILLNESS: Ms. Shetty is an 85-year-old female who has fallen at her nursing facility. She was up walking with her walker. She tripped on some rocks outside. She fell and landed on her right hip and wrist. She had pain and was unable to ambulate. She was taken to the emergency department. X-rays have shown an intertrochanteric right femur fracture. She has also been found to have a distal radius fracture on the right. She has received pain control. She denies hitting her head. She has been alert since her injury. She uses a walker at baseline. PAST MEDICAL HISTORY: Cardiac arrhythmia with pacemaker. She denies other active medical problems. PAST SURGICAL HISTORY: Pacemaker placement as well as multiple low back surgeries in the past. She has had no recent surgery. ALLERGIES: NO KNOWN DRUG ALLERGIES. MEDICATIONS: A full medication list is available in the chart. The patient does not take blood thinners. FAMILY MEDICAL HISTORY: Noncontributory. REVIEW OF SYSTEMS: Positive for right hip and right wrist pain. PHYSICAL EXAMINATION: VITAL SIGNS: Stable. The patient is normotensive, 98% on room air. GENERAL: She is alert, lying supine, in no apparent distress. HEENT: Normocephalic and atraumatic. RESPIRATORY: Breathing comfortably. ABDOMEN: Soft, nontender, and nondistended. CARDIOVASCULAR: Pulses palpable peripherally. MUSCULOSKELETAL: The patient's right leg has shortening in external rotation. She has pain with hip motion. Skin is intact about the hip. She is able to flex and extend the foot and ankle. Her right hand has swelling over her thumb as well as the wrist. She can make a composite fist. She can flex and extend the wrist. IMAGING STUDIES: X-rays of the right wrist demonstrate a nondisplaced dorsal distal radial fracture. The patient has advanced osteopenia. The fracture appears to be incomplete through the distal radius. Pelvic x-ray and right hip x-ray demonstrates an intertrochanteric femur fracture with slight displacement. This is acute. IMPRESSION: 1. Right intertrochanteric femur fracture. 2. Right nondisplaced distal radial fracture. PLAN: At this point, the patient will need surgical intervention. Our goal will be to stabilize the femur, so she can get out of bed early and mobilize. Surgery will allow pain relief as well. We will plan for intramedullary nail fixation of the proximal femur. Her wrist can be treated in a wrist brace. She wants to proceed. She will need preoperative optimization. She will also need preoperative COVID test, which will be done on a rapid basis. We will keep her n.p.o. Hopefully, we can proceed to surgery this afternoon. Job ID: [id number]
[2020-07-22 14:41] LABS: ALT (SGPT) 12 U/L (8-55); AST (SGOT) 40 U/L (5-34); Albumin 3.3 g/dL (3.4-4.8); Alkaline Phosphatase 107 U/L (40-110); Anion Gap 12 mmol/L (10-20); BUN (Urea Nitrogen) 14 mg/dL (9.8-20.1); Bilirubin, Total 0.4 mg/dL (0.2-1.2); Calc. Creatinine Clearance 0 mL/min (70-130); Calcium 9.4 mg/dL (7.8-10.44); Carbon Dioxide 25 mmol/L (23-31); Chloride 101 mmol/L (98-107); Estimated GFR-MDRD 78; Globulin 3.1 g/dL (2.4-3.5); Glucose 136 mg/dL (83-110); Magnesium 1.6 mg/dL (1.6-2.6); Potassium 4.6 mmol/L (3.5-5.1); Protein, Total 6.4 g/dL (6.0-8.3); Sodium 133 mmol/L (136-145)
[2020-07-22] MEDS ORDERED: Dextrose 5% in Water 1,000 ML IV PRN (14:57)
[2020-07-22] MEDS ORDERED: Insulin Regular 300 UNITS/3 ML VIAL SC PRN (14:57)
[2020-07-22] MEDS ORDERED: Ondansetron PF 4 MG/2 ML Vial IVP PRN (14:57)
[2020-07-22] MEDS ORDERED: hydrALAZINE 20 MG/ML VIAL SLOW IVP PRN (14:57)
[2020-07-22] MEDS ORDERED: Dextrose 50% Abboject 50 ML SYRINGE SLOW IVP PRN (14:57)
[2020-07-22] MEDS ORDERED: traMADol HCl 50 MG TAB PO PRN (15:01)
--- NOTE | 2020-07-22 15:17 | CT ---
CT thoracic spine noncontrast: 07/22/2020 HISTORY: 85-year-old female with thoracic spinal pain, status post trauma due to fall COMPARISON: None FINDINGS: There are compression fractures at multiple levels, including: T3: Shallow broad depression of superior endplate with approximately 20-35% loss of height. T6: Biconvex indentations of superior and inferior endplates. Greatest loss of height is centrally lo cated, approximately 50-75%. T7: Shallow broad indentations of superior and inferior endplates. Maximum loss of height centrally a pproximately 20-50%. T8: Biconcave broad depressions of superior and inferior endplates. Maximum velocity of height centra lly approximately 75-80%. T11:Biconcave broad depressions of superior and inferior endplates. Maximum velocity of height centra lly approximately 75-80%. L1: Broad indentations of superior and inferior endplates. Maximum loss of height centrally approxima tely 30-70% Minimal bony retropulsion of posterior superior endplate of L1. No high-grade bony retropulsion and n o high-grade central spinal canal stenosis, at any level. No moderate sized or large hematoma in the perivertebral space. No definite linear fracture lucencies identified. Nonspecific heterogeneous changes in posterior aspects of bilateral lungs within limited [id number]. No high-grade scoliosis. Diffuse osteopenia. Ankylosis between the T9 and T10 vertebral bodies. IMPRESSION: 1. Multiple osteoporotic compression fractures. At least most are probably chronic. Without prior maria dies, it is difficult to determine which, if any, are acute or subacute. 2. Ankylosis at T9-10.
--- NOTE | 2020-07-22 15:34 | CT ---
Exam: Lumbar spine CT without contrast HISTORY: Trauma. Pain. COMPARISON: None FINDINGS: Diffuse bone demineralization. 5 lumbar type vertebra. Visualized solid organs, paraspinal muscles and alimentary canal. Appropriate attenuation. Limited evaluation the contents of the central spinal canal and neural foramina. T11-T12: No high-grade central canal stenosis or high-grade neural foraminal narrowing T12-L1: No high-grade central canal stenosis or high-grade neural foraminal narrowing L1-L2: Broad-based disc bulge. No significant central canal stenosis or significant neural foraminal narrowing L2-L3: Broad-based disc bulge, ligament flavum thickening and facet hypertrophy. Mild central canal s tenosis and mild bilateral neural foraminal narrowing L3-L4: Broad-based disc bulge, ligament flavum thickening and facet view. Moderate central canal sten osis. Moderate bilateral neural foraminal narrowing L4-L5: No evidence of high-grade central canal stenosis or high-grade foraminal narrowing L5-S1: No evidence of high-grade central canal stenosis or high-grade neural foraminal narrowing There is a mild chronic compression fracture at T12. Severe compression fracture along the mid body o f L2, chronic. There is a acute fracture along the superior left endplate at L4. Acute upon chronic compression fracture is suspected. There is moderate loss of vertebral body height. There is retropul marion with at least moderate central canal stenosis. There is a fracture involving the midline and right sacral promontory. There is a small amount of ass ociated fluid/hematoma and stranding of the free sacral fat with extension of posttraumatic change into the right pelvis/piriformis muscles. IMPRESSION: 1. Sacral promontory fracture with associated posttraumatic edema in the presacral fat and extending along the right hemipelvis 2. Acute L4 compression fracture upon a chronic compression fracture. There is retropulsion with mode rate central canal stenosis. 3. Severe compression of the mid L2 vertebral body. Chronic T12 vertebral body fracture with mild los s of vertebral body height..
[2020-07-22] MEDS ORDERED: Magnesium 2 GM/50 ML 2 GM in Premix Bag 1 BAG IVPB SCH (17:00)
[2020-07-22] MEDS ORDERED: Sodium Phosphate 15 MMOL in Sodium Chloride 0.9% 250 ML 250 ML IVPB SCH (17:00)
--- NOTE | 2020-07-22 17:54 | HP ---
TRAUMA SURGEON: Dr. Bass. CONSULTING PHYSICIAN: Dr. Alas. HISTORY OF PRESENT ILLNESS: The patient is an 85-year-old female, who presented to the emergency department after she had a mechanical fall in the lobby of the hospital. The patient had come for imaging studies. Subsequently, on her way out, her walker got hung up on some rocks and she fell onto her right side. She was evaluated in the emergency department and found to have a right intertrochanteric femur fracture and a right distal radius fracture. She does have quite a significant cardiac history with AICD placement. She reports she does not use any oxygen at home and gets around fairly well with her walker. She occasionally has swelling in her legs and is a very poor historian about her medications. She lives at the [facility], which is an assisted living facility and gets assistance with her medications there. Her daughter is involved in her care. At the time of my evaluation, the patient complained of right hip and lower back pain. She does have a history of previous back surgery and pain. She reports her pain is a little bit worse than previously. She denies anticoagulation use and loss of consciousness. She denies shortness of breath, chest pain, swelling, cough, nausea, vomiting, or lightheadedness. REVIEW OF SYSTEMS: All additional 10-point review of systems negative except as indicated above. PAST MEDICAL HISTORY: Congestive heart failure with a pacemaker and AICD, diabetes, coronary artery disease, hypertension, hypothyroidism, Parkinson's, AFib, depression, osteoporosis, left bundle-branch block, angina, essential tremor. PAST SURGICAL HISTORY: Pacemaker and AICD placement, sacral wound debridement, cholecystectomy, back surgery, hysterectomy, and left hip surgery due to fracture. SOCIAL HISTORY: The patient denies any history of drug, tobacco, or alcohol use. She lives at an assisted living facility and gets around fairly well with a walker. MEDICATIONS: 1. Atorvastatin. 2. Carbidopa/levodopa. 3. Carvedilol. 4. Donepezil. 5. Entresto. 6. Lasix. 7. Gabapentin. 8. Levothyroxine. 9. Magnesium oxide. 10. Metformin. 11. MiraLAX. 12. Zofran. 13. Oxybutynin chloride. 14. Primidone. 15. Protonix. 16. Sertraline. 17. Refresh solution eye drops. 18. Extra Strength Tylenol. 19. Voltaren gel. ALLERGIES: NO KNOWN DRUG ALLERGIES. PHYSICAL EXAMINATION: VITAL SIGNS: Temperature 98.7, pulse 85, respirations 20, oxygen saturation 99% on 2 L nasal cannula, blood pressure 152/65. PRIMARY SURVEY: Airway intact. Adequate breath sounds bilaterally. 2+ pulses in the bilateral radials, femorals, and DPs. GCS 15. Gross motor and sensation intact. No lacerations, bruising, or external bleeding. SECONDARY SURVEY: HEAD: Normocephalic. No gross palpable skull deformities. EYES: Pupils 3 to 2, equal, round, reactive to light bilaterally. ENT: No signs of trauma. C-SPINE: No step-offs or deformities. Nontender. C-collar in place. ABDOMEN: Soft, nontender, nondistended. PELVIS: Stable to palpation. RECTAL: Deferred. GENITOURINARY: Deferred. EXTREMITIES: Right lower extremity very slightly shorter than compared to the left with right-sided anterior and medial thigh tenderness. No abrasions or ecchymosis noted. She does have some tenderness with a splint on the right upper extremity. 2+ pulses in bilateral radials, femorals, and DPs. BACK/SPINE: No step-offs or deformity. Tenderness to the lower spine. No abrasions or ecchymosis. NEUROLOGIC: 5/5 strength in the bilateral housekeeper home, plantarflexion, dorsiflexion. Gross normal sensation x4 extremities. LABORATORY FINDINGS: White count 14.5, hemoglobin 10.8, hematocrit 34.3, platelets 191. INR 1.1. Sodium 133, potassium 4.6, chloride 101, bicarb 25, BUN 14, creatinine 0.71, glucose 136, phosphorus 3.0, magnesium 1.6. Total bilirubin 0.4, AST 40, ALT 12, and alkaline phosphatase 104. Troponin 0.026. BNP 176. DIAGNOSTIC FINDINGS: X-ray of the right hip demonstrates displaced intertrochanteric right proximal femoral fracture. X-ray of the right wrist demonstrates nondisplaced fracture involving the dorsal aspect of the distal radius conspicuous region. Chest x-ray demonstrates no acute intrathoracic abnormalities. X-ray of the pelvis demonstrates right intertrochanteric fracture. CT scan of the L-spine demonstrates sacral promontory fracture with associated posttraumatic edema in the postsacral fat and extending along the right hemipelvis, acute L4 compression fracture upon a chronic compression fracture, there is retropulsion with moderate central canal stenosis, severe compression of the mid L2 vertebral body, chronic T12 vertebral body fracture with mild loss of vertebral body height. CT scan of the T-spine demonstrates multiple osteoporotic compression fractures at least most are probably chronic without prior study. It is difficult to determine which if any are acute and/or subacute ankylosis of T9 through 10. ASSESSMENT: 1. Status post mechanical fall from standing. 2. Right intertrochanteric femur fracture. 3. Right distal radius fracture. 4. Acute L4 compression fracture upon a chronic fracture with retropulsion and moderate canal stenosis. 5. Severe compression fracture of L2 vertebral body. 6. History of pacemaker/automatic implantable cardioverter-defibrillator, congestive heart failure, diabetes, coronary artery disease, hypertension, hypothyroidism, Parkinson's, atrial fibrillation, depression, and chronic sacral wound. PLAN: The patient will be admitted to the Trauma Service. Dr. Alas would like to take the patient to the OR for the right intertrochanteric femur fracture. Right radius will be treated with a splint. We will update Dr. Alas to the patient's sacral fracture. We will consult Neurosurgery as well for her lumbar spine fractures, which are acute and chronic and we will follow up on their recommendations. In the meantime, we will maintain L-spine immobilization. I did speak with the patient's traffic ii manager and pants closer. They were able to give some information about the patient's previous history. The patient does have an AICD due to a previous ejection fraction of 20% in 2016. Her most recent echo was in 2019 with EF of 65%. She is not on any anticoagulation. There is no history of valvular disease. She has had a cardiac stent in 2016 after a catheterization. The patient's EKG is unconcerning. Her troponin is indeterminate. She has no active signs of heart failure. She denies chest pain, shortness of breath, nausea, or vomiting. We will complete an echo preoperatively to determine her heart function now. If there are any further concerns requiring evaluation by Cardiology, we will consult them after we have received the echo read. The patient will likely go to the OR tomorrow. This patient was discussed with Dr. Bass before this dictation. Job ID: [id number]
[2020-07-22 18:09] VITALS: BMI 24.7
[2020-07-22] MEDS: Acetaminophen 500 MG TAB PO SCH (18:11)
[2020-07-22] MEDS: traMADol HCl 50 MG TAB PO PRN (18:48)
[2020-07-22 19:11] LABS: Bilirubin Negative (Negative); Blood, Urine Trace (Negative); Clarity Turbid (Clear); Glucose, Urine (Dipstick) Normal (Negative); Ketone, Urine Trace mg/dL (Negative); Leukocyte 75 Leu/uL (Negative); Nitrite Negative (Negative); Protein, Urine (Dipstick) Negative (Neg-Trace); RBC/HPF 0-3 HPF (0-3); Specific Gravity, Urine 1.009 (1.002-1.036); Squamous Epithelial None Seen HPF (0-3); Urobilinogen 3 mg/dL (Less than 2); WBC/HPF 0-3 HPF (0-3); pH, Urine 5.5 (5.0-9.0)
[2020-07-22] MEDS: Morphine 2 MG/ML VIAL SLOW IVP PRN (19:21)
[2020-07-22 19:25] LABS: Bacteria/HPF 1+ HPF (None Seen); Urine Culture Reflex Yes Yes
[2020-07-22] MEDS: Famotidine/PF 20 mg/2ml Vial SLOW IVP SCH (19:49)
[2020-07-22] MEDS: Senokot S 8.6-50 MG TAB PO SCH (19:49)
--- NOTE | 2020-07-22 21:44 | PRG ---
DATE OF SERVICE: 07/22/2020 I have not yet met Perfecto Wilkinsaudraclifton. Evidently, she was in the hospital, getting some testing done and was leaving the lobby when her walker got caught and she fell. She was brought to the emergency department, where radiographic examinations revealed a hip fracture, a sacral promontory fracture, and some perhaps new and definitely old thoracic and lumbar compression fractures. None of the compression fractures are surgically treatable. If she has acute tenderness in the thoracic spine, then a thoracic spinal orthosis may be needed. If there is acute tenderness in the lumbar spine, then a lumbosacral orthosis may be needed. If both areas are tender, then a TLSO may be needed, but that is the best we can do for pain control. We will see her tomorrow morning. There is no surgical intervention we can offer. Job ID: [id number]
[2020-07-23] MEDS: Acetaminophen 500 MG TAB PO SCH ×4 (00:51→17:54)
[2020-07-23 05:12] LABS: #Basophils 0.1 thou/uL (0.0-0.2); #Eosinphils 0.1 thou/uL (0.0-0.7); #Lymphocytes 2.1 thou/uL (1.20-3.40); #Monocytes 0.7 thou/uL (0.11-0.59); #Neutrophils 4.5 thou/uL (1.40-6.50); %Basophils 0.7 % (0.0-1.0); %Eosinophils 0.9 % (0.0-10.0); %Lymphocytes 28.7 % (21.0-51.0); %Monocytes 9.3 % (0.0-10.0); %Neutrophils 60.4 % (42.0-75.0); Hemoglobin 8.3 g/dL (12.0-16.0); Mean Corpuscular HGB CONC 32.3 g/dL (32.0-36.0); Mean Corpuscular Hemoglobin 31.2 pg (27.0-31.0); Mean Corpuscular Volume 96.3 fL (78.0-98.0); Mean Platelet Volume 7.5 fL (7.4-10.4); Platelet Count 145 thou/uL (130-400); RBC Distribution Width 12.4 % (11.5-14.5); Red Blood Cell (RBC) Count 2.66 mill/uL (4.20-5.40); White Blood Cell (WBC) Count 7.4 thou/uL (4.8-10.8)
[2020-07-23 05:24] LABS: Anion Gap 11 mmol/L (10-20); BUN (Urea Nitrogen) 16 mg/dL (9.8-20.1); Calc. Creatinine Clearance 61 mL/min (70-130); Calcium 8.9 mg/dL (7.8-10.44); Carbon Dioxide 26 mmol/L (23-31); Chloride 102 mmol/L (98-107); Estimated GFR-MDRD 82; Glucose 113 mg/dL (83-110); Magnesium 2.3 mg/dL (1.6-2.6); Phosphorus 5.2 mg/dL (2.3-4.7); Potassium 4.4 mmol/L (3.5-5.1); Sodium 135 mmol/L (136-145)
[2020-07-23] MEDS: Morphine 2 MG/ML VIAL SLOW IVP PRN (05:31)
--- NOTE | 2020-07-23 06:14 | PRG ---
DATE OF SERVICE: 07/23/2020 The patient is currently on the surgical floor. She was admitted yesterday status post ground level fall in which she sustained a right intertrochanteric femur fracture, nondisplaced right radius fracture and acute lumbar spine fracture. The patient overnight was made n.p.o. for repair of her right hip. Her right wrist and spinal fractures will be treated in braces. The nurses report no issues. At the time of my visit, the patient was asleep. Her vital signs were stable and she was afebrile. Postoperatively, the patient will begin physical and occupational therapy and we will work on placement at that time. Job ID: [id number]
[2020-07-23] MEDS ORDERED: CEFAZOLIN 2 GM in Premix Bag 1 BAG IVPB SCH (06:45)
--- NOTE | 2020-07-23 08:39 | CON ---
DATE OF CONSULTATION: HISTORY OF PRESENT ILLNESS: Ms. Shetty is an 85-year-old female, who presents to the emergency department with a chief complaint of fall. She was getting some testing done at the hospital today and when she was leaving the lobby, her walker got caught and she fell. Her imaging revealed a hip fracture and a sacral fracture and a thoracic and lumbar compression fracture. REVIEW OF SYSTEMS: CONSTITUTIONAL: Denies fever or chills. EAR, NOSE, AND THROAT: Denies change in vision or hearing. CARDIAC: Denies chest pain, shortness of breath, or diaphoresis. PULMONARY: Denies shortness of breath, cough, or hemoptysis. GI: Denies abdominal pain, nausea, vomiting, diarrhea, change in stool formation and consistency. : Denies trouble with urination, frequency of urination, bloody urine. SKIN: Denies skin rash, bruising, bleeding, skin masses. MUSCULOSKELETAL: As per history of present illness. NEUROLOGICAL: As per history of present illness. PSYCHOLOGICAL: As per history of present illness. PAST MEDICAL HISTORY: Cardiac arrhythmia with pacemaker. PAST SURGICAL HISTORY: Multiple lower back surgeries, pacemaker placement. MEDICATIONS: 1. Atorvastatin 10 mg. 2. Carvedilol 3.125 mg. 3. Carbidopa/levodopa 25-100 mg. 4. Donepezil 10 mg. 5. Entresto 24-26 mg. 6. Furosemide 20 mg. 7. Gabapentin 300 mg. 8. Levothyroxine 100 mcg. 9. Magnesium oxide 400 mg. 10. Metformin 500 mg. 11. MiraLAX 17 g/dose. 12. Ondansetron 4 mg. 13. Oxybutynin 5 mg. 14. Primidone 50 mg. 15. Protonix 20 mg. 16. Polyvinyl alcohol 1.4%-0.6% ophthalmic. 17. Sertraline 50 mg. 18. Tylenol Extra Strength 500 mg. PHYSICAL EXAMINATION: VITAL SIGNS: Blood pressure 112/60, pulse 81, respiratory rate 18, temperature 98.6. HEENT: Pupils are equal. Extraocular movements are intact. NECK: Soft, supple. No masses are noted. Range of motion is intact and nonpainful. NEUROLOGICAL: Awake, alert, and oriented x3. Memory, attention, fund of knowledge normal. Cranial nerves are grossly intact. EXTREMITIES: Upper and lower extremities, the patient is unable to move right leg due to hip fracture. Rest of her extremities, she has free active range of motion. There is no focal motor weakness in her other extremities. No reflex asymmetry in her other extremities. PLAN: On exam, I had two nurses help me move Ms. Shetty on her left side, so I was able to palpate her entire spine. There was no acute tenderness in her thoracic or lumbar spine. She just complained of severe pain in her right leg due to her hip fracture. There is no surgical intervention Neurosurgery can offer at this time. Most likely chronic compression fracture. If patient complains of pain in her spine, may brace with TLSO for 8 weeks. She will follow up in our clinic for x-rays and appointments at 2 and 8 weeks. Job ID: [id number] [facility]
[2020-07-23] MEDS ORDERED: LEVODOPA PO SCH (09:00)
[2020-07-23] MEDS ORDERED: Pantoprazole 40 MG GRANULES PACKET PO SCH (09:00)
[2020-07-23] MEDS ORDERED: CARBIDOPA PO SCH (09:00)
[2020-07-23] MEDS: Carvedilol 25 MG TAB PO SCH ×2 (09:28→20:47)
[2020-07-23] MEDS: Levothyroxine Sodium 100 MCG TAB PO SCH (09:31)
[2020-07-23] MEDS: Carbidopa/Levodopa 25-100 mg Tablet PO SCH ×4 (09:31→20:48)
[2020-07-23] MEDS: Polyethylene Glycol 3350 17 GM Packet PO SCH (09:31)
[2020-07-23] MEDS: Oxybutynin ER 5 MG TAB PO SCH (09:31)
[2020-07-23] MEDS: Primidone 50 MG TAB PO SCH ×2 (09:32→20:48)
[2020-07-23] MEDS: Senokot S 8.6-50 MG TAB PO SCH ×2 (09:34→20:49)
[2020-07-23] MEDS ORDERED: Lidocaine 1% PF 5 ML VIAL ONE (11:53)
[2020-07-23] MEDS ORDERED: PHENYLEPHRINE-NS 100 MCG/ML 10 ML SYRINGE ONE (11:53)
[2020-07-23] MEDS ORDERED: Rocuronium Bromide 10 MG/ML (10ML VIAL) ONE (11:53)
[2020-07-23] MEDS ORDERED: PROPOFOL 200 MG/20 ML VIAL ONE (11:53)
[2020-07-23] MEDS ORDERED: Ondansetron PF 4 MG/2 ML Vial ONE (11:53)
[2020-07-23] MEDS: Famotidine/PF 20 mg/2ml Vial SLOW IVP SCH (12:14)
[2020-07-23] MEDS ORDERED: cefOXitin Sodium/Dextrose 2 GM/50 ML BAG ONE (12:51)
[2020-07-23] MEDS ORDERED: Fentanyl 100 MCG/2 ML VIAL ONE ×2 (13:25→15:05)
[2020-07-23] MEDS ORDERED: Bupivacaine HCl 0.5%/Epinephrine 1:200,000/PF 30 ml Vial ONE (14:25)
[2020-07-23] MEDS ORDERED: SUGAMMADEX SODIUM 200 MG/2 ML VIAL ONE (14:29)
--- NOTE | 2020-07-23 14:44 | RAD ---
Radiograph right hip 2 views: 07/23/2020 HISTORY: 85-year-old female with intertrochanteric fracture due to fall COMPARISON: 07/22/2020 1 view pelvis radiograph FINDINGS: Fluoroscopic spot images obtained with C-arm in the OR. There has been interval reduction of the varus angulation. There has been placement of dynamic compre ssion screw with distal tip in the femoral head, connected to short intramedullary nail with distal tip at proximal diaphysis with single stabilization screw distally. IMPRESSION: Status post reduction and dynamic compression screw fixation of the acute, traumatic, displaced, angu lated intertrochanteric fracture of right proximal femur.
[2020-07-23] MEDS ORDERED: Ondansetron ODT 4 MG TAB PO PRN ×2 (14:54→14:58)
[2020-07-23] MEDS ORDERED: Polyvinyl Alcohol 1.4%/Povidone 0.6% Opth Drops EA EYE PRN (14:54)
[2020-07-23] MEDS ORDERED: Acetaminophen 500 MG TAB PO PRN (14:54)
[2020-07-23] MEDS ORDERED: Diclofenac 1% 100 GM GEL TP PRN (14:54)
[2020-07-23] MEDS ORDERED: Fleet Enema 133 ML BOT PR PRN (14:58)
[2020-07-23] MEDS ORDERED: Bisacodyl 10 MG SUPP PR PRN (14:58)
[2020-07-23] MEDS ORDERED: Milk Of Magnesia 30 ML UDCUP PO PRN (14:58)
[2020-07-23] MEDS ORDERED: Ondansetron PF 4 MG/2 ML Vial IVP PRN (14:58)
[2020-07-23] MEDS ORDERED: Cepastat Lozenges 1 LOZ PO PRN (14:58)
--- NOTE | 2020-07-23 15:05 | PRG ---
DATE OF SERVICE: 07/23/2020 SUBJECTIVE: The patient was seen this morning during rounds. She was lying in bed with no signs of acute distress. She is n.p.o. today to go to the OR for fixation of her right intertrochanteric femur fracture. At the time of my evaluation, the patient reported her pain was well controlled. OBJECTIVE: VITAL SIGNS: Temperature 98.5, pulse 75, respirations 18, oxygen saturation 92% on 2 L nasal cannula, blood pressure 135/69. GENERAL: Well-appearing elderly female, lying in bed with no signs of acute distress. PULMONARY: Equal chest rise and fall. No signs of acute respiratory distress. CARDIAC: Regular rate and rhythm. GI: Abdomen is soft, nontender, nondistended. EXTREMITIES: 2+ pulses in all extremities. Gross motor and sensations intact. No significant swelling noted. NEUROLOGIC: GCS is 15. LABORATORY FINDINGS: White count 7.2, hemoglobin 8.3, hematocrit 25.6, platelets 145. Sodium 135, potassium 4.4, chloride 102, bicarb 26, BUN 16, creatinine 0.64, glucose 113, phosphorus 5.2, magnesium 2.3. DIAGNOSTIC FINDINGS: Echocardiogram completed this morning demonstrates ejection fraction is visually estimated at 60% to 65%, grade 1/3 diastolic dysfunction. Mitral annular calcification is present. Mild mitral regurgitation. Aortic valve sclerosis, but opens well. Mild tricuspid regurgitation. ASSESSMENT: 1. Status post mechanical fall from standing. 2. Right intertrochanteric femur fracture. 3. Right distal radius fracture. 4. Sacral fracture. 5. L2 vertebral body compression fracture. 6. Acute on chronic L4 compression fracture with retropulsion and moderate canal stenosis. 7. History of congestive heart failure; coronary artery disease and automated implantable cardioverter defibrillator; diabetes; hypertension; cardiac stents; Parkinson's; atrial fibrillation; depression; chronic sacral wound, now healed. PLAN: Continue n.p.o. The patient to go to the OR today with Orthopedic Surgery for fixation of her right intertrochanteric femur fracture. Dr. Mccloud was consulted and recommended TLSO brace. Nursing to contact [facility] orthotics. The patient have on at all times, but can take it off to shower. Postoperatively, we will ask Physical and Occupational Therapy to start working with the patient and assess if she needs placement at acute rehab versus correction facility. We will restart some of her home medications to include Sinemet, carvedilol, Aricept, Synthroid, Ditropan, Protonix, primidone, Entresto, and Zoloft. We will re-evaluate additional home medications tomorrow especially Lasix. This patient was seen and evaluated by Dr. Bass and myself this morning during rounds. Job ID: [id number]
[2020-07-23] MEDS ORDERED: metFORMIN 500 MG TAB PO SCH (17:00)
[2020-07-23 18:31] LABS: SARS-CoV-2 MS2 Positive; SARS-CoV-2 N Gene Negative; SARS-CoV-2 S Gene Negative; SARS-CoV-2 by NAA Not Detected (NotDetected); SARS-CoV-2 orf1ab Negative
[2020-07-23] MEDS: Cyclobenzaprine 10 MG TAB PO PRN (20:47)
[2020-07-23] MEDS: Sulfameth/Trimethoprim DS 800-160mg TAB PO SCH (20:48)
[2020-07-23] MEDS: Donepezil HCl 10 MG TAB PO SCH (20:48)
[2020-07-23] MEDS: Ferrous Gluconate 324 MG TAB PO SCH (20:48)
[2020-07-23] MEDS: Atorvastatin Calcium 20 MG TAB PO SCH (20:48)
[2020-07-23] MEDS: Gabapentin 300 MG CAP PO SCH (20:49)
[2020-07-23] MEDS ORDERED: Non-Formulary Item 1 EACH (Sertraline Hcl [Sertraline Hcl] 50 MG) PO SCH (21:00)
[2020-07-23] MEDS ORDERED: Senokot S 8.6-50 MG TAB PO SCH (21:00)
--- NOTE | 2020-07-23 22:24 | OP ---
DATE OF PROCEDURE: 07/23/2020 PREOPERATIVE DIAGNOSIS: Intertrochanteric fracture of the right hip. POSTOPERATIVE DIAGNOSIS: Intertrochanteric fracture of the right hip. PROCEDURE PERFORMED: Open reduction and internal fixation of the intertrochanteric fracture of the right hip using a short trochanteric fixation nail. ANESTHESIA: General. DESCRIPTION OF PROCEDURE: The patient was given preoperative IV antibiotics, taken to the operating room, placed in supine position. Satisfactory general anesthesia was performed. The patient was placed on the fracture table in the supine position. All bony prominences were well padded. Traction was applied to the right lower extremity and C-arm verified good alignment of the intertrochanteric fracture in AP, lateral, and multiple oblique views. Lateral aspect of the hip and thigh was then sterilely prepped and draped. A 2-inch incision was made proximal to the greater trochanter and under fluoroscopic visualization, a guide pin was placed to the greater trochanter, then over-reamed a 10 mm in diameter short trochanteric fixation nail. There was 170 mm in length was then inserted through the greater trochanter crossing the intertrochanteric fracture and into the intramedullary canal. Using the guide, another incision was made 1.5 inches in length on the lateral aspect of the thigh and the guide was used to first put a guide pin up through the lateral aspect of the femur into the nail and into the femoral neck and head. Appropriate size screw was measured, and a large compression nail was placed through the nail and into the femoral neck and head, and then the locking device was used to lock that screw to the addie. A 5.0 locking screw was placed in the distal aspect of the addie also using the guide. This was all performed under fluoroscopic visualization and showed good placement of the addie and screws and proper alignment of the intertrochanteric fracture. The guide was disassembled. The wounds were thoroughly irrigated, and the wounds were closed using 0 Vicryl for the iliotibial band. Fat, subcutaneous tissue, and skin were closed with 3-0 Rapide. Sterile dressing was applied. The patient was taken off the fracture table, transferred to recovery room in stable condition. ESTIMATED BLOOD LOSS: 50 mL. COMPLICATIONS: None. Job ID: [id number]
--- NOTE | 2020-07-23 22:43 | CON ---
DATE OF CONSULTATION: 07/23/2020 HISTORY OF PRESENT ILLNESS: The patient is an 85-year-old female who fell onto her right hip yesterday. X-rays were obtained, which showed an intertrochanteric fracture of the right proximal femur. The patient had immediate pain in the right hip and inability to ambulate. She was seen in the emergency room and x-rays revealed a displaced right intertrochanteric fracture of the right femur. The patient also had a nondisplaced fracture in the dorsal cortex of the right distal radius. She was placed in a wrist immobilizer for the wrist. The patient has had a history of congestive heart failure, pacemaker, and AICD. She had diabetes, coronary artery disease, hypertension, and atrial fibrillation, so Cardiology was consulted. She had an echocardiogram, which fortunately showed that the heart looks functioning well, had a left ventricular ejection fraction of 60% to 65%. She was cleared for surgery today. PAST MEDICAL HISTORY: Above-mentioned congestive heart failure with pacemaker, AICD, diabetes, coronary artery disease, hypertension, hypothyroidism, Parkinson's, atrial fibrillation, depression, osteoporosis, left bundle branch block, angina, and essential tremor. PAST SURGICAL HISTORY: Pacemaker and AICD placement, debridement of a sacral wound, cholecystectomy, back surgery, hysterectomy, and left hip surgery. SOCIAL HISTORY: The patient does not use tobacco, alcohol, or drugs. Lives at an assisted living facility. PHYSICAL EXAMINATION: The right lower extremity is shortened, externally rotated. The skin on the lateral aspect of the hip and thigh is in good condition. Any intensive movement causes severe pain in the right hip. X-rays of the right hip were reviewed. The patient does have an intertrochanteric fracture of right hip with coxa varus. She has significant osteopenia, which is consistent with severe osteoporosis. IMPRESSION: 1. Intertrochanteric fracture of the right hip. 2. Nondisplaced fracture of the right distal and dorsal radius. PLAN: The patient will be taken to the operating room for open reduction and internal fixation of the right hip. Plan on using a short trochanteric fixation nail. The patient and the patient's daughter's questions were answered and agreed to the procedure. Job ID: [id number]
[2020-07-23] MEDS: Insulin Regular 300 UNITS/3 ML VIAL SC PRN (23:12)
[2020-07-24] MEDS: Acetaminophen 500 MG TAB PO SCH ×5 (00:38→23:50)
[2020-07-24 05:20] LABS: Mean Corpuscular HGB CONC 32.3 g/dL (32.0-36.0); Mean Corpuscular Hemoglobin 31.4 pg (27.0-31.0); Mean Corpuscular Volume 97.1 fL (78.0-98.0); Mean Platelet Volume 7.9 fL (7.4-10.4); Platelet Count 135 thou/uL (130-400); RBC Distribution Width 12.5 % (11.5-14.5); Red Blood Cell (RBC) Count 2.22 mill/uL (4.20-5.40); White Blood Cell (WBC) Count 9.7 thou/uL (4.8-10.8)
[2020-07-24 06:08] LABS: Anion Gap 13 mmol/L (10-20); BUN (Urea Nitrogen) 19 mg/dL (9.8-20.1); Calc. Creatinine Clearance 58 mL/min (70-130); Calcium 8.8 mg/dL (7.8-10.44); Carbon Dioxide 24 mmol/L (23-31); Chloride 101 mmol/L (98-107); Estimated GFR-MDRD 78; Glucose 123 mg/dL (83-110); Magnesium 2.1 mg/dL (1.6-2.6); Phosphorus 3.7 mg/dL (2.3-4.7); Potassium 4.8 mmol/L (3.5-5.1); Sodium 133 mmol/L (136-145)
--- NOTE | 2020-07-24 06:56 | PRG ---
DATE OF SERVICE: 07/24/2020 SUBJECTIVE: The patient is currently on the surgical floor. She is status post a ground level fall when she sustained a right intertrochanteric femur fracture. Today, she underwent open reduction and internal fixation of the same. She tolerated that procedure well. She was delayed on her operative intervention due to her comorbidities. She is also being treated for her L2 compression fracture with a TLSO brace and she has a non operative distal radius fracture. The patient has remained stable. Her vital signs are stable and she is afebrile today. Today, she will begin working with physical occupational therapy Case Management for placement. Job ID: [id number]
[2020-07-24] MEDS: Polyethylene Glycol 3350 17 GM Packet PO SCH (08:28)
[2020-07-24] MEDS: Pantoprazole 40 MG GRANULES PACKET PO SCH (08:29)
[2020-07-24] MEDS: Magnesium Oxide 400 MG TAB PO SCH (08:29)
[2020-07-24] MEDS: Senokot S 8.6-50 MG TAB PO SCH ×2 (08:29→20:30)
[2020-07-24] MEDS: Multivitamin W/ Minerals 1 TAB PO SCH (08:29)
[2020-07-24] MEDS: Levothyroxine Sodium 100 MCG TAB PO SCH (08:29)
[2020-07-24] MEDS: Oxybutynin ER 5 MG TAB PO SCH (08:30)
[2020-07-24] MEDS: Sulfameth/Trimethoprim DS 800-160mg TAB PO SCH ×2 (08:30→20:30)
[2020-07-24] MEDS: Carvedilol 25 MG TAB PO SCH ×2 (08:30→20:33)
[2020-07-24] MEDS: Ferrous Gluconate 324 MG TAB PO SCH ×2 (08:30→20:27)
[2020-07-24] MEDS: Carbidopa/Levodopa 25-100 mg Tablet PO SCH ×4 (08:30→20:32)
[2020-07-24] MEDS ORDERED: Non-Formulary Item 1 EACH (Pantoprazole Sodium [Protonix] 20 MG) PO SCH (09:00)
[2020-07-24] MEDS ORDERED: Furosemide 20 MG TAB PO SCH (09:00)
[2020-07-24] MEDS ORDERED: Polyethylene Glycol 3350 17 GM Packet PO SCH (09:00)
[2020-07-24] MEDS: Primidone 50 MG TAB PO SCH ×2 (10:29→20:26)
--- NOTE | 2020-07-24 13:52 | PRG ---
DATE OF SERVICE: 07/24/2020 SUBJECTIVE: The patient was seen this morning during rounds. She was lying in bed with no signs of acute distress. She was slightly confused, but answered both questions appropriately and follow commands. She reported she had breakfast, but did not have much of an appetite, agreed to try Glucerna shakes. Nursing reported the patient has stage IV sacral ulcer and Wound Care has been consulted. The patient has a history of sacral wound ulcer. They asked if Fisher could remain in place until evaluation by Wound Care. We will discontinue Fisher tomorrow. OBJECTIVE: VITAL SIGNS: Temperature 98.9, pulse 20, oxygen saturation 98% on 3 L nasal cannula, and blood pressure 107/47. GENERAL: Well-appearing elderly female, sitting up in bed with no signs of acute distress. PULMONARY: Equal chest rise and fall. Clear breath sounds bilaterally. No signs of acute respiratory distress. Incentive spirometry at 500. ABDOMEN: Soft, nontender, nondistended. EXTREMITIES: 2+ pulses in all extremities. Gross motor and sensation are intact. No significant swelling noted. NEURO: GCS is 14 to 15, -1 for confusion occasionally. LABORATORY FINDINGS: White count 9.7, hemoglobin 7.0, hematocrit 21.6, and platelets 135. Sodium 133, potassium 4.8, chloride 101, bicarbonate 24, BUN 19, creatinine 0.71, glucose 123, phosphorus 3.7, and magnesium 2.1. DIAGNOSTIC FINDINGS: There are no new diagnostic findings to report. ASSESSMENT: 1. Status post mechanical fall from standing. 2. Right intertrochanteric femur fracture, status post repair. 3. Right distal radius fracture. 4. Sacral fracture. 5. L4 vertebral body compression fracture. 6. Acute on chronic L4 compression fracture with retropulsion and moderate canal stenosis. 7. Urinary tract infection, present on admission and uncomplicated. 8. Hyperglycemia, due to diabetes. 9. Sacral ulcer, chronic. 10. Anemia due to acute blood loss on chronic anemia. 11. History of congestive heart failure, pacemaker, and AICD, diabetes, CAD, hypertension, hypothyroidism, Parkinson's, atrial fibrillation, depression, and chronic sacral wound. PLAN: Continue current diabetic diet. Add Glucerna b.i.d. Increase sliding scale to moderate. The patient to receive 1 unit of packed red blood cells for anemia with associated hypotension. Repeat blood work tomorrow. Wound Care to evaluate the patient for chronic sacral wound. We will continue to hold the patient's home Lasix. The patient can continue to have home medication Bactrim for urinary tract infection. Discontinue Fisher after evaluation of sacral wound by Wound Care. The patient is pending placement at acute rehab facility. Job ID: [id number] MTDD
[2020-07-24] MEDS: Insulin Regular 300 UNITS/3 ML VIAL SC PRN (16:54)
[2020-07-24] MEDS: Ferrous Sulfate 325 MG TAB PO SCH (16:55)
--- NOTE | 2020-07-24 18:48 | PRG ---
DATE OF SERVICE: 07/24/2020 SUBJECTIVE: The patient is 1 day status post ORIF of an intertrochanteric fracture of the right hip using a trochanteric fixation nail. The patient is resting quietly. OBJECTIVE: VITAL SIGNS: Performed recently, temperature 98.5, pulse 74, respiratory rate 14, blood pressure 113/67, O2 saturation 98% on 3 L nasal cannula. LABORATORY DATA: Laboratory shows hemoglobin of 7, hematocrit 21.6. Sodium is borderline low at 133. Remaining values are normal. IMPRESSION: 1. Status post open reduction and internal fixation of the right hip. 2. Anemia secondary to expected blood loss from surgery. PLAN: The patient will receive 2 units of packed red blood cells. After her anemia has been improved, we will have Physical and Occupational Therapy work with her as far as getting out of bed, ambulating with a walker, etc. Job ID: [id number]
[2020-07-24 20:32] LABS: Hemoglobin 7.7 g/dL (12.0-16.0); Mean Corpuscular HGB CONC 34.5 g/dL (32.0-36.0); Mean Corpuscular Hemoglobin 32.8 pg (27.0-31.0); Mean Corpuscular Volume 95.1 fL (78.0-98.0); Mean Platelet Volume 7.5 fL (7.4-10.4); Platelet Count 123 thou/uL (130-400); RBC Distribution Width 13.3 % (11.5-14.5); Red Blood Cell (RBC) Count 2.35 mill/uL (4.20-5.40); White Blood Cell (WBC) Count 9.8 thou/uL (4.8-10.8)
[2020-07-24] MEDS: Atorvastatin Calcium 20 MG TAB PO SCH (20:32)
[2020-07-24] MEDS: Gabapentin 300 MG CAP PO SCH (20:32)
[2020-07-24] MEDS: Donepezil HCl 10 MG TAB PO SCH (20:32)
[2020-07-24] MEDS: Ascorbic Acid 500 mg Chewable Tablet PO SCH (20:32)
--- NOTE | 2020-07-24 20:41 | ULT ---
LIMITED ABDOMINAL ULTRASOUND: 07/24/20 PROVIDED CLINICAL HISTORY: Trauma. FINDINGS: Limited sonographic interrogation was performed of the abdomen for evaluation of potential free intra peritoneal fluid. There is no sonographic evidence for such. IMPRESSION: As above. POS: SOHEILA
[2020-07-24] MEDS ORDERED: Hydrocortisone Sod Succ/PF 100 mg/2 ml Vial IVP SCH (22:00)
[2020-07-25] MEDS: Hydrocortisone Sod Succ/PF 100 mg/2 ml Vial IVP SCH ×4 (03:08→21:24)
[2020-07-25 05:20] LABS: #Lymphocytes 1.5 thou/uL (1.20-3.40); #Monocytes 0.2 thou/uL (0.11-0.59); #Neutrophils 7.3 thou/uL (1.40-6.50); %Basophils 0.1 % (0.0-1.0); %Eosinophils 0.4 % (0.0-10.0); %Lymphocytes 16.1 % (21.0-51.0); %Monocytes 2.4 % (0.0-10.0); %Neutrophils 81.1 % (42.0-75.0); Hemoglobin 7.9 g/dL (12.0-16.0); Mean Corpuscular HGB CONC 32.8 g/dL (32.0-36.0); Mean Corpuscular Hemoglobin 31.2 pg (27.0-31.0); Mean Corpuscular Volume 95.2 fL (78.0-98.0); Mean Platelet Volume 7.5 fL (7.4-10.4); Platelet Count 130 thou/uL (130-400); RBC Distribution Width 13.3 % (11.5-14.5); Red Blood Cell (RBC) Count 2.51 mill/uL (4.20-5.40)
[2020-07-25] MEDS: Acetaminophen 500 MG TAB PO SCH ×3 (05:33→17:18)
[2020-07-25] MEDS: Insulin Regular 300 UNITS/3 ML VIAL SC PRN ×4 (05:39→21:26)
[2020-07-25 05:41] LABS: Anion Gap 10 mmol/L (10-20); BUN (Urea Nitrogen) 24 mg/dL (9.8-20.1); Calc. Creatinine Clearance 47 mL/min (70-130); Calcium 8.8 mg/dL (7.8-10.44); Carbon Dioxide 26 mmol/L (23-31); Chloride 98 mmol/L (98-107); Estimated GFR-MDRD 61; Glucose 176 mg/dL (83-110); Magnesium 2.2 mg/dL (1.6-2.6); Phosphorus 3.4 mg/dL (2.3-4.7); Sodium 129 mmol/L (136-145)
[2020-07-25] MEDS: Ferrous Sulfate 325 MG TAB PO SCH ×2 (09:07→17:18)
[2020-07-25] MEDS: Heparin 5,000 UNITS/ML VIAL SC SCH ×2 (09:07→21:23)
[2020-07-25] MEDS: Ascorbic Acid 500 mg Chewable Tablet PO SCH ×2 (09:08→21:22)
[2020-07-25] MEDS: Multivitamin W/ Minerals 1 TAB PO SCH (09:08)
[2020-07-25] MEDS: Oxybutynin ER 5 MG TAB PO SCH (09:08)
[2020-07-25] MEDS: Carbidopa/Levodopa 25-100 mg Tablet PO SCH ×4 (09:08→21:22)
[2020-07-25] MEDS: Polyethylene Glycol 3350 17 GM Packet PO SCH (09:08)
[2020-07-25] MEDS: traMADol HCl 50 MG TAB PO PRN ×2 (09:09→21:46)
[2020-07-25] MEDS: Pantoprazole 40 MG GRANULES PACKET PO SCH (09:09)
[2020-07-25] MEDS: Sodium Chloride 1 GM TAB PO SCH ×2 (09:10→21:26)
[2020-07-25] MEDS: Magnesium Oxide 400 MG TAB PO SCH (09:10)
[2020-07-25] MEDS: Senokot S 8.6-50 MG TAB PO SCH ×2 (09:10→21:21)
[2020-07-25] MEDS: Primidone 50 MG TAB PO SCH ×2 (09:12→21:22)
[2020-07-25] MEDS: Carvedilol 25 MG TAB PO SCH ×2 (09:13→21:22)
--- NOTE | 2020-07-25 13:36 | PRG ---
DATE OF SERVICE: 07/25/2020 SUBJECTIVE: The patient was seen this morning during rounds. She was sitting up in bed with no signs of acute distress. She reported her pain was well controlled. Tolerating her diet. Slept well overnight. Continues to use incentive spirometry. OBJECTIVE: VITAL SIGNS: Temperature 97.9, pulse 72, respirations 14, oxygen saturation 97% on room air, blood pressure 125/68. GENERAL: Well-appearing elderly female, sitting up in bed with no signs of acute distress. PULMONARY: Equal chest rise and fall. No signs of acute respiratory distress. CARDIAC: Regular rate and rhythm. GI: Abdomen is soft, nontender, nondistended. EXTREMITIES: 2+ pulses in all extremities. Gross motor and sensation are intact. No significant swelling noted. NEUROLOGIC: GCS 15. TLSO brace in place and fitting appropriately. LABORATORY FINDINGS: White count 9.0, hemoglobin 7.9, hematocrit 23.9, platelets 130. Sodium 129, potassium 5.0, chloride 98, bicarb 26, BUN 24, creatinine 0.88, glucose 176, phosphorus 3.2, magnesium 2.2, cortisol 8.0. DIAGNOSTIC FINDINGS: Ultrasound of the abdomen and pelvis completed yesterday evening demonstrates limited sonographic interrogation was performed of the abdomen for evaluation of potential free intraabdominal fluid. There is no sonographic evidence for such. ASSESSMENT: 1. Status post mechanical fall from standing. 2. Right intertrochanteric femur fracture, status post repair. 3. Right distal wrist fracture. 4. Sacral fracture. 5. L2 vertebral body compression fracture. 6. L4 compression fracture, acute on chronic. 7. Urinary tract infection. 8. Acute adrenal insufficiency. 9. Acute blood loss anemia on chronic anemia. 10. Acute hyponatremia. 11. History of congestive heart failure, pacemaker and AICD, diabetes, coronary artery disease, hypertension, hypothyroidism, Parkinson's, atrial fibrillation, depression, and chronic sacral wound. PLAN: Continue current diet and pain regimen. Continue Entresto and carvedilol. Hydrocortisone started last night for acute adrenal insufficiency, continue current dose. 1.5 L free water restriction for hyponatremia. The patient will also be placed on sodium tablets. We did change her antibiotic from Bactrim to Cipro as concerns for hyponatremia with Bactrim, we will continue that for additional 3 days. Discontinue Fisher. Start subcu heparin for DVT prophylaxis. Continue incentive spirometry. The patient is pending placement at acute rehab facility. This patient will be discussed with Dr. Bass after this dictation. Job ID: [id number]
--- NOTE | 2020-07-25 18:41 | PRG ---
DATE OF SERVICE: 07/25/2020 SUBJECTIVE: The patient is two days status post ORIF of a right intertrochanteric fracture using a trochanteric fixation nail. The patient reports no complaints. The patient had a hemoglobin of 7 yesterday. She was given 1 unit of packed red blood cells and hemoglobin this morning is 7.9. OBJECTIVE: VITAL SIGNS: Temperature 98.3, pulse 69, respiratory rate 12, blood pressure 116/68, O2 saturation 95% on 2 L per nasal cannula. EXTREMITIES: The right lower extremity is neurovascularly intact. PLAN: The patient will continue to work with Physical and Occupational Therapy, getting out of bed. The patient may weightbear as tolerated on the right lower extremity. Job ID: [id number]
[2020-07-25] MEDS: Atorvastatin Calcium 20 MG TAB PO SCH (21:21)
[2020-07-25] MEDS: Gabapentin 300 MG CAP PO SCH (21:21)
[2020-07-25] MEDS: Cipro 250 MG TAB PO SCH (21:22)
[2020-07-25] MEDS: Donepezil HCl 10 MG TAB PO SCH (21:22)
--- NOTE | 2020-07-25 23:46 | PRG ---
DATE OF SERVICE: 07/25/2020 SUBJECTIVE: The patient was seen during evening rounds, awake and alert, in no distress. The patient is postop day #2, status post open reduction and internal fixation of right intertrochanteric fracture right hip. The patient is currently awake and alert, in no distress, talking to her family on the phone. The patient denies any pain at this time. The patient did have some urinary retention earlier and had to be I and O cath x1. OBJECTIVE: VITAL SIGNS: Stable and the patient is afebrile. Urinary output has been adequate for patient's age and weight. PLAN: Continue supportive care and pain regimen. Continue diabetic diet with Glucerna supplements. Continue free water restriction to 1.5 L a day. Continue hydrocortisone for adrenal insufficiency. Continue TLSO brace when out of bed. Continue aggressive pulmonary toilet with the use of incentive spirometer. The patient is pending placement to inpatient rehab. Job ID: [id number]
[2020-07-26] MEDS: Acetaminophen 500 MG TAB PO SCH ×4 (00:03→18:19)
[2020-07-26] MEDS: Hydrocortisone Sod Succ/PF 100 mg/2 ml Vial IVP SCH ×4 (03:06→21:07)
[2020-07-26] MEDS: Cyclobenzaprine 10 MG TAB PO PRN (03:06)
[2020-07-26 05:49] LABS: Hemoglobin 7.1 g/dL (12.0-16.0); Mean Corpuscular HGB CONC 33.1 g/dL (32.0-36.0); Mean Corpuscular Hemoglobin 31.4 pg (27.0-31.0); Mean Corpuscular Volume 94.7 fL (78.0-98.0); Mean Platelet Volume 7.5 fL (7.4-10.4); Platelet Count 157 thou/uL (130-400); RBC Distribution Width 12.9 % (11.5-14.5); Red Blood Cell (RBC) Count 2.25 mill/uL (4.20-5.40); White Blood Cell (WBC) Count 8.3 thou/uL (4.8-10.8)
[2020-07-26] MEDS: Levothyroxine Sodium 100 MCG TAB PO SCH (06:03)
[2020-07-26] MEDS: Cipro 250 MG TAB PO SCH ×2 (06:03→21:02)
[2020-07-26] MEDS: Insulin Regular 300 UNITS/3 ML VIAL SC PRN ×4 (06:03→21:23)
[2020-07-26 06:45] LABS: Anion Gap 10 mmol/L (10-20); BUN (Urea Nitrogen) 25 mg/dL (9.8-20.1); Calc. Creatinine Clearance 49 mL/min (70-130); Calcium 8.7 mg/dL (7.8-10.44); Carbon Dioxide 26 mmol/L (23-31); Chloride 98 mmol/L (98-107); Estimated GFR-MDRD 64; Glucose 188 mg/dL (83-110); Magnesium 2.3 mg/dL (1.6-2.6); Phosphorus 2.4 mg/dL (2.3-4.7); Potassium 5.1 mmol/L (3.5-5.1); Sodium 129 mmol/L (136-145)
[2020-07-26] MEDS ORDERED: Sodium Phosphate 15 MMOL in Sodium Chloride 0.9% 250 ML 250 ML IVPB SCH (08:30)
[2020-07-26] MEDS: Polyethylene Glycol 3350 17 GM Packet PO SCH (09:14)
[2020-07-26] MEDS: Senokot S 8.6-50 MG TAB PO SCH ×2 (09:14→21:03)
[2020-07-26] MEDS: Magnesium Oxide 400 MG TAB PO SCH (09:15)
[2020-07-26] MEDS: Oxybutynin ER 5 MG TAB PO SCH (09:15)
[2020-07-26] MEDS: Pantoprazole 40 MG GRANULES PACKET PO SCH (09:15)
[2020-07-26] MEDS: Carbidopa/Levodopa 25-100 mg Tablet PO SCH ×4 (09:15→21:02)
[2020-07-26] MEDS: Ferrous Sulfate 325 MG TAB PO SCH ×2 (09:15→18:21)
[2020-07-26] MEDS: Multivitamin W/ Minerals 1 TAB PO SCH (09:15)
[2020-07-26] MEDS: Carvedilol 25 MG TAB PO SCH ×2 (09:16→21:03)
[2020-07-26] MEDS: Sodium Chloride 1 GM TAB PO SCH ×2 (09:16→21:03)
[2020-07-26] MEDS: Primidone 50 MG TAB PO SCH ×2 (09:16→21:23)
[2020-07-26] MEDS: Heparin 5,000 UNITS/ML VIAL SC SCH ×2 (09:16→21:07)
[2020-07-26] MEDS: Ascorbic Acid 500 mg Chewable Tablet PO SCH ×2 (09:17→18:20)
[2020-07-26] MEDS ORDERED: Iopamidol-370 76% 500 ML 1 ML ONE (13:44)
--- NOTE | 2020-07-26 13:52 | CT ---
CT ABDOMEN AND PELVIS WITH IV CONTRAST: INDICATION: Post trauma. Bleeding. COMPARISON: No comparison. FINDINGS: Images through the lung bases show cardiomegaly and vascular congestion. No significant infiltrate o r effusion apparent. Liver, spleen, and pancreas appear unremarkable. There is a tiny cyst measuring approximately 1 cm i n the inferior right lobe of the liver. Dystrophic calcification in the mid right lobe of the liver. The stomach and duodenum appear unremarkable. Adrenal glands unremarkable. Kidneys show small bilateral cysts. No hydronephrosis. No enhancing r enal mass lesion. Small bowel loops are normal caliber. Prominent stool volume in the right colon and transverse colon. Aorta is calcified without aneurysm. No evidence of free fluid in the abdomen or pelvis. Images through the pelvis show hysterectomy. Th e urinary bladder is distended and unremarkable. Osseous structures show evidence of recent postoperative change at the right hip. The right hip has been recently fixated with compression screw and intramedullary addie. There is small joint effusion a nd there is edema in the surrounding musculature and adipose tissue. Numerous gas pockets are seen w ithin the surrounding muscular at the right hip which could be consistent with recent postoperative s tatus. There is some fluid density within the muscle planes which is probably postoperative. I emily ot exclude development of an inflammatory or infectious process. There is haziness and stranding in the presacral soft tissues which was noted on the prior CT lumbar spine and is secondary to the trauma. Prior described right sacral fractures are not well delineated . The vertebral bodies again show numerous compression deformities involving thoracic and lumbar verteb chloe which are described on recent CT of thoracic and lumbar spine of 07/22/2020. IMPRESSION: 1. No acute intraabdominal process. 2. Posttraumatic and postoperative changes in the pelvis again noted as discussed above. POS: CORI
--- NOTE | 2020-07-26 18:21 | PRG ---
DATE OF SERVICE: 07/26/2020 SUBJECTIVE: The patient was seen this morning during rounds. She was sitting up in bed with no signs of acute distress. She reported that her pain was well controlled. She slept well overnight except for nurses coming in to check on her and give her medications. She has sat up from bed yesterday, but has not got up. Reported having difficulty voiding after Fisher removal. I and O cath once overnight. OBJECTIVE: VITAL SIGNS: Temperature 97.6, pulse 63, respirations 18, oxygen saturation 98% on room air, and blood pressure 116/52. GENERAL: Well-appearing elderly female, sitting up in bed with no signs of acute distress. PULMONARY: Equal chest rise and fall. Clear breath sounds bilaterally. No signs of acute respiratory distress. CARDIAC: Regular rate and rhythm. GI: Abdomen is soft, nontender, nondistended. EXTREMITIES: 2+ pulses in all extremities. Gross motor and sensations intact. No significant swelling noted. NEUROLOGIC: GCS is 15. TLSO brace is in place and fitting appropriately. LABORATORY FINDINGS: White count 8.3, hemoglobin 7.1, hematocrit 21.7, and platelets 157. Sodium 129, potassium 5.1, chloride 98, bicarb 26, BUN 25, creatinine 0.84, and glucose 188. DIAGNOSTIC FINDINGS: CT scan of the abdomen and pelvis with IV contrast demonstrates no acute intraabdominal processes. Posttraumatic and postoperative changes in the pelvis again noted as discussed above. ASSESSMENT: 1. Status post mechanical fall from standing. 2. Right intertrochanteric femur fracture, status post repair. 3. Right distal radius fracture. 4. Sacral fracture. 5. L2 vertebral body compression fractures. 6. Acute on chronic L4 compression fracture. 7. Acute adrenal insufficiency, stable. 8. Urinary tract infection. 9. Hyponatremia, stable. 10. Acute blood loss anemia, slightly worse today. 11. History of congestive heart failure, pacemaker/automatic implantable cardioverter-defibrillator, diabetes, coronary artery disease, hypertension, hypothyroidism, Parkinson's, atrial fibrillation, depression, and chronic sacral wound. PLAN: Continue current diet and pain regimen. Continue free water restriction. Continue sodium tabs. CT completed today was due to the patient's hemoglobin dropped after transfusion of blood. Repeat CBC in the morning. We will decrease hydrocortisone to 25 q.6 hours. We can further deescalate tomorrow. The patient having difficulty voiding. She did get up to the bedside commode and void 300. Postvoid bladder scan demonstrated retention of 400. I and O cath x1. Restart void trial. She is pending placement at [facility]. We will reassess for possible safe for discharge tomorrow. This patient was seen and examined by Dr. Bass and myself this morning during rounds. Job ID: [id number]
[2020-07-26] MEDS: Gabapentin 300 MG CAP PO SCH (21:03)
[2020-07-26] MEDS: Atorvastatin Calcium 20 MG TAB PO SCH (21:03)
[2020-07-26] MEDS: Donepezil HCl 10 MG TAB PO SCH (21:03)
--- NOTE | 2020-07-26 21:14 | PRG ---
DATE OF SERVICE: 07/26/2020 SUBJECTIVE: The patient is awake. States that she has good pain control. She has had no significant problems with her right hip or thigh. She is 3 days status post ORIF of an intertrochanteric fracture of the right hip and trochanteric fixation nail. OBJECTIVE: The patient has been afebrile. Her vital signs have been stable. Her last blood pressure 116/52. LABORATORY DATA: This morning shows a white count of 8.3, hemoglobin 7.1, hematocrit 21.4. The small incision on the lateral aspect of the right hip and thigh are healing well. There is usual minor swelling. No erythema or drainage. Right lower extremity is neurovascularly intact. The patient will continue to work with Physical and Occupational Therapy. We will recheck her H and H in the morning. If it goes down any further, she will require another transfusion. Otherwise, we will watch it steadily improve. Post hospitalization, plan is for her to at home. Job ID: [id number]
--- NOTE | 2020-07-26 22:32 | PRG ---
DATE OF SERVICE: 07/26/2020 SUBJECTIVE: The patient was seen during evening rounds, resting comfortably in no acute distress. The patient is postop day #3, status post open reduction and internal fixation of right intertrochanteric femur fracture, right hip. OBJECTIVE: Vital signs stable, afebrile. Urinary output adequate for age and weight. PLAN: Continue supportive care and pain regimen. Continue physical and occupational therapy. We will repeat labs in the morning. The patient's hemoglobin is stable. She can be discharged. The patient is pending insurance approval to [facility]. Job ID: [id number]
[2020-07-27] MEDS: Acetaminophen 500 MG TAB PO SCH ×4 (00:26→17:52)
[2020-07-27] MEDS: Hydrocortisone Sod Succ/PF 100 mg/2 ml Vial IVP SCH ×4 (04:32→22:30)
[2020-07-27 05:13] LABS: #Eosinphils 0.1 thou/uL (0.0-0.7); #Lymphocytes 2.6 thou/uL (1.20-3.40); #Monocytes 0.6 thou/uL (0.11-0.59); #Neutrophils 5.6 thou/uL (1.40-6.50); %Basophils 0.5 % (0.0-1.0); %Eosinophils 1.5 % (0.0-10.0); %Lymphocytes 29.4 % (21.0-51.0); %Monocytes 6.3 % (0.0-10.0); %Neutrophils 62.3 % (42.0-75.0); Mean Corpuscular HGB CONC 31.5 g/dL (32.0-36.0); Mean Corpuscular Hemoglobin 30.1 pg (27.0-31.0); Mean Corpuscular Volume 95.3 fL (78.0-98.0); Mean Platelet Volume 7.7 fL (7.4-10.4); Platelet Count 202 thou/uL (130-400); RBC Distribution Width 13.1 % (11.5-14.5); Red Blood Cell (RBC) Count 2.31 mill/uL (4.20-5.40); White Blood Cell (WBC) Count 8.9 thou/uL (4.8-10.8)
[2020-07-27 05:23] LABS: Anion Gap 12 mmol/L (10-20); BUN (Urea Nitrogen) 19 mg/dL (9.8-20.1); Calc. Creatinine Clearance 57 mL/min (70-130); Calcium 9.3 mg/dL (7.8-10.44); Carbon Dioxide 26 mmol/L (23-31); Chloride 101 mmol/L (98-107); Estimated GFR-MDRD 77; Glucose 158 mg/dL (83-110); Magnesium 2.3 mg/dL (1.6-2.6); Phosphorus 2.3 mg/dL (2.3-4.7); Potassium 4.8 mmol/L (3.5-5.1); Sodium 134 mmol/L (136-145)
[2020-07-27] MEDS: Levothyroxine Sodium 100 MCG TAB PO SCH (06:05)
[2020-07-27] MEDS: Cipro 250 MG TAB PO SCH ×2 (06:05→22:30)
[2020-07-27] MEDS: Insulin Regular 300 UNITS/3 ML VIAL SC PRN ×2 (06:11→17:54)
[2020-07-27] MEDS: Bisacodyl 10 MG SUPP PR SCH (09:55)
[2020-07-27] MEDS: Ascorbic Acid 500 mg Chewable Tablet PO SCH ×2 (09:56→17:52)
[2020-07-27] MEDS: Sodium Chloride 1 GM TAB PO SCH ×2 (09:56→22:30)
[2020-07-27] MEDS: Polyethylene Glycol 3350 17 GM Packet PO SCH (09:56)
[2020-07-27] MEDS: Ferrous Sulfate 325 MG TAB PO SCH ×2 (09:56→17:54)
[2020-07-27] MEDS: Furosemide 20 MG TAB PO SCH (09:57)
[2020-07-27] MEDS: Senokot S 8.6-50 MG TAB PO SCH ×2 (09:57→22:30)
[2020-07-27] MEDS: Carbidopa/Levodopa 25-100 mg Tablet PO SCH ×4 (09:57→22:06)
[2020-07-27] MEDS: Oxybutynin ER 5 MG TAB PO SCH (09:57)
[2020-07-27] MEDS: Multivitamin W/ Minerals 1 TAB PO SCH (09:57)
[2020-07-27] MEDS: Pantoprazole 40 MG GRANULES PACKET PO SCH (09:57)
[2020-07-27] MEDS: Carvedilol 25 MG TAB PO SCH ×2 (09:57→22:11)
[2020-07-27] MEDS: Heparin 5,000 UNITS/ML VIAL SC SCH ×2 (09:57→22:30)
[2020-07-27] MEDS: Magnesium Oxide 400 MG TAB PO SCH (09:57)
--- NOTE | 2020-07-27 12:49 | PRG ---
DATE OF SERVICE: 07/27/2020 SUBJECTIVE: The patient was seen during morning rounds on the surgical floor. The patient displayed increased level of confusion from yesterday. This was consistent with report from nursing staff. The patient verbalized multiple delirious statements including that she believed she was in a restaurant, that she had back surgery yesterday, and that she had other things to do today. She did display no acute distress. She was calm and following commands. She denied any pain at this time. She worked with PT this morning and was able to do bed, chair, toilet transfers independently. OBJECTIVE: VITAL SIGNS: Temperature 98.8, pulse 77, respirations 16, oxygen saturation 96% on room air, blood pressure 123/62. GENERAL: No acute distress. Appears slightly fatigued. HEENT: Pale palpebral sclera and conjunctiva. PULMONARY: No respiratory distress. Equal rise and fall of the chest. CARDIAC: Irregularly irregular rhythm, normal rate. ABDOMEN: Soft, nontender, nondistended. EXTREMITIES: Right forearm splinted. Right lower leg incision, CDI. Distal strength and sensation intact. NEURO: The patient is disoriented to place and time, displaying some delirium today, follows commands appropriately. LABORATORY DATA: WBC 8.9, hemoglobin 7.0, platelets 202. Sodium 134, potassium 4.8, glucose 158, phosphorus 2.3, magnesium 2.3. ASSESSMENT: 1. Status post mechanical fall from standing. 2. Right intertrochanteric femur fracture postop day #4, status post open reduction and internal fixation. 3. Right distal radius fracture. 4. Sacral fracture. 5. L2 vertebral compression fracture. 6. [id number] L4 compression fracture. 7. Urinary tract infection. 8. Hyponatremia, stable. 9. Acute blood loss anemia, currently on downtrend. 10. History of congestive heart failure, pacemaker/ICD, diabetes, coronary artery disease, hypertension, hypothyroidism, Parkinson's, atrial fibrillation, depression, chronic sacral wound. PLAN: We will continue the patient's current pain regimen as it seems to be effective. We reviewed the patient's medications for any psychotropic effects. Due to her decrease in hemoglobin and ileus symptoms, we will transfuse 1 unit of packed red blood cells today and reassess H and H 4 hours after the transfusion. I have also added a speech therapy consult for further cognitive assessment. We will continue to monitor. This patient was seen with Dr. Mike Bass and rest of the trauma team on morning rounds. Job ID: [id number]
[2020-07-27] MEDS: Primidone 50 MG TAB PO SCH ×2 (13:27→22:09)
[2020-07-27] MEDS ORDERED: Melatonin 3 MG TAB PO PRN (18:58)
[2020-07-27 21:23] LABS: Hemoglobin 8.7 g/dL (12.0-16.0); Platelet Count 221 thou/uL (130-400)
[2020-07-27] MEDS: Donepezil HCl 10 MG TAB PO SCH (22:06)
[2020-07-27] MEDS: Gabapentin 300 MG CAP PO SCH (22:30)
[2020-07-27] MEDS: Atorvastatin Calcium 20 MG TAB PO SCH (22:30)
[2020-07-28] MEDS: Cyclobenzaprine 10 MG TAB PO PRN (01:52)
[2020-07-28] MEDS: Acetaminophen 500 MG TAB PO SCH ×4 (01:56→12:20)
[2020-07-28] MEDS: Levothyroxine Sodium 100 MCG TAB PO SCH (05:06)
[2020-07-28] MEDS: Cipro 250 MG TAB PO SCH (05:06)
[2020-07-28] MEDS: Hydrocortisone Sod Succ/PF 100 mg/2 ml Vial IVP SCH ×2 (05:06→10:00)
[2020-07-28 05:50] LABS: #Basophils 0.1 thou/uL (0.0-0.2); #Eosinphils 0.6 thou/uL (0.0-0.7); #Lymphocytes 4.4 thou/uL (1.20-3.40); #Monocytes 0.8 thou/uL (0.11-0.59); #Neutrophils 5.3 thou/uL (1.40-6.50); %Basophils 0.7 % (0.0-1.0); %Lymphocytes 39.4 % (21.0-51.0); %Monocytes 7.6 % (0.0-10.0); %Neutrophils 47.4 % (42.0-75.0); Hemoglobin 8.6 g/dL (12.0-16.0); Mean Corpuscular HGB CONC 32.9 g/dL (32.0-36.0); Mean Corpuscular Hemoglobin 30.6 pg (27.0-31.0); Mean Corpuscular Volume 93.2 fL (78.0-98.0); Mean Platelet Volume 6.9 fL (7.4-10.4); Platelet Count 248 thou/uL (130-400); RBC Distribution Width 15.6 % (11.5-14.5); White Blood Cell (WBC) Count 11.2 thou/uL (4.8-10.8)
[2020-07-28 06:27] LABS: Anion Gap 10 mmol/L (10-20); BUN (Urea Nitrogen) 15 mg/dL (9.8-20.1); Calc. Creatinine Clearance 58 mL/min (70-130); Calcium 9.1 mg/dL (7.8-10.44); Carbon Dioxide 27 mmol/L (23-31); Chloride 102 mmol/L (98-107); Estimated GFR-MDRD 78; Glucose 125 mg/dL (83-110); Magnesium 2.1 mg/dL (1.6-2.6); Phosphorus 1.6 mg/dL (2.3-4.7); Sodium 135 mmol/L (136-145)
[2020-07-28] MEDS ORDERED: Sodium Phosphate 30 MMOL in Sodium Chloride 0.9% 250 ML 250 ML IVPB SCH (06:45)
[2020-07-28 07:53] VITALS: TEMP 98.3
[2020-07-28] MEDS: Senokot S 8.6-50 MG TAB PO SCH (09:58)
[2020-07-28] MEDS: Carvedilol 25 MG TAB PO SCH (09:58)
[2020-07-28] MEDS: Furosemide 20 MG TAB PO SCH (09:58)
[2020-07-28] MEDS: Oxybutynin ER 5 MG TAB PO SCH (09:58)
[2020-07-28] MEDS: Sodium Chloride 1 GM TAB PO SCH (09:58)
[2020-07-28] MEDS: Ferrous Sulfate 325 MG TAB PO SCH (09:59)
[2020-07-28] MEDS: Multivitamin W/ Minerals 1 TAB PO SCH (09:59)
[2020-07-28] MEDS: Ascorbic Acid 500 mg Chewable Tablet PO SCH (10:00)
[2020-07-28] MEDS: Heparin 5,000 UNITS/ML VIAL SC SCH (10:00)
[2020-07-28] MEDS: Carbidopa/Levodopa 25-100 mg Tablet PO SCH ×2 (10:00→12:20)
[2020-07-28] MEDS: Magnesium Oxide 400 MG TAB PO SCH (10:01)
[2020-07-28] MEDS: Polyethylene Glycol 3350 17 GM Packet PO SCH (10:01)
[2020-07-28] MEDS: Pantoprazole 40 MG GRANULES PACKET PO SCH (10:01)
[2020-07-28] MEDS: Bisacodyl 10 MG SUPP PR SCH (10:25)
--- NOTE | 2020-07-28 10:31 | PQF ---
CLINICAL DOCUMENTATION CLARIFICATION FORM: Dear Dr. Bass Date: 07/28/20 Please exercise your independent, professional judgment in responding to the clarification form. Clinical indicators are provided on the bottom of this form for your review. Please check appropriate box(es): [x ] Encephalopathy: Type: [ x ] Acute [ ] Subacute [ ] Chronic Etiology: [ ] Hypertensive [ x ] Metabolic [ ] Toxic [ ] Hypoxic [ ] Septic [ ] Drug induced: [ ] In the setting of underlying dementia [ ] Unspecified [ ] Other (please specify) [ ] Transient Alteration of Awareness [ ] Other diagnosis [ ] Unable to determine In addition, please specify: Present on Admission (POA): [x ] Yes [ ] No [ ] Unable to determine For continuity of documentation, please document condition throughout progress notes and discharge summary. Thank You. PN 07/27( NIRMAL): "THE PATIENT DISPLAYED INCREASED LEVEL OF CONFUSION FROM YESTERDAY. THIS WAS CONSISTENT WITH REPORT FROM NURSING STAFF. ...MULTIPLE DELIRIOUS STATEMENTS INCLUDING THAT SHE BELIEVED SHE WAS IN A [employer], THAT SHE HAD BACK SURGERY YESTERDAY, AND THAT SHE HAD OTHER THINGS TO DO TODAY." RISKS: POST OP DAY #4 ORIF (PN 07/27 -KEITHE) ADVANCED AGE UTI (PN 91/- KEITHE) HYPONATREMIA (PN 07/26 - DWIGHT) TREATMENT: CIPRO 07/25 - 07/28 REVIEW OF MEDICATIONS FOR ANY PSYCHOTROPIC EFFECTS (PN 07/27- NIRMAL) SPEECH THERAPY CONSULT FOR FURTHER COGNITIVE ASSESSMENT (PN 07/27 - NIRMAL) CDS Signature: Elvia Ayers RN Phone #: [phone] Date: 07/28/20 This is a permanent part of the Medical Record [facility]
[2020-07-28] MEDS: Primidone 50 MG TAB PO SCH (12:20)
[2020-07-28 12:30] VITALS: BP 155/72
--- NOTE | 2020-07-29 14:58 | DIS ---
DATE OF ADMISSION: 07/22/2020 DATE OF DISCHARGE: 07/28/2020 ADMISSION DIAGNOSES: 1. Status post fall from standing. 2. Right intertrochanteric femur fracture. 3. Right distal radius fracture. 4. Acute L4 compression fracture with chronic fracture with retropulsion and moderate canal stenosis. 5. Severe compression fracture of L2 vertebral body. 6. History of automatic implantable cardioverter-defibrillator, congestive heart failure, diabetes, coronary artery disease, hypertension, hypothyroidism, Parkinson's, atrial fibrillation, depression, and chronic sacral wound. 7. Urinary tract infection, present on admission. CONSULTATIONS: Orthopedics, Dr. Richards and Neurosurgery, Dr. Mccloud. PROCEDURES: Open reduction and internal fixation of right intertrochanteric femur fracture. HOSPITAL COURSE: The patient is an 85-year-old woman who was taken to the emergency department after having a fall in the lobby of the hospital, where she underwent evaluation and examination, was noted to have the above injuries. The patient will be admitted to the hospital for orthopedic evaluation, which she underwent. The following day, she was able to undergo her above procedure which she tolerated well. The patient had some delirium while here in our facility. This postop was likely related to her medications to her Parkinson's disease, Alzheimer's, and urinary tract infection that she was being treated for. The patient would work with physical and occupational therapy. Her delirium did appear to have improved prior to discharge. At the time of discharge, she was following commands and more appropriate though she definitely still had some confusion. The patient's Cassi Coma Scale was 14, -1 for confusion. Her pain was controlled. She was tolerating a diet and her bowel function had returned. The patient was discharged to the [facility]. She will follow up with Orthopedics in 3 to 4 weeks. The patient's spinal injuries were treated with a TLSO brace and she will follow up with Neurosurgery in 4 to 6 weeks. Job ID: [id number]
== END 2020-07-28 13:45 | DRG 956 ==
LOC: ERS 10:52 → SURG A 13:23
PROVIDERS: ADMIT Surgery; ATTEND Surgery
PROC: 0QS606Z Reposition Right Upper Femur with Intramedullary Internal Fixation Device, Open Approach (ICD-10-PCS; principal; 2020-07-23)
PROC: 30233N1 Transfusion of Nonautologous Red Blood Cells into Peripheral Vein, Percutaneous Approach (ICD-10-PCS; 2020-07-24)
DX: S72.141A Displaced intertrochanteric fracture of right femur, initial encounter for closed fracture (principal); S32.10XA Unspecified fracture of sacrum, initial encounter for closed fracture; G93.41 Metabolic encephalopathy; S52.501A Unspecified fracture of the lower end of right radius, initial encounter for closed fracture; N39.0 Urinary tract infection, site not specified; S32.049A Unspecified fracture of fourth lumbar vertebra, initial encounter for closed fracture; D62 Acute posthemorrhagic anemia; E87.1 Hypo-osmolality and hyponatremia; E27.40 Unspecified adrenocortical insufficiency; I25.10 Atherosclerotic heart disease of native coronary artery without angina pectoris; I11.0 Hypertensive heart disease with heart failure; E03.9 Hypothyroidism, unspecified; I48.91 Unspecified atrial fibrillation; F32.9 Major depressive disorder, single episode, unspecified; M81.0 Age-related osteoporosis without current pathological fracture; G20 Parkinson's disease; L98.499 Non-pressure chronic ulcer of skin of other sites with unspecified severity; W18.30XA Fall on same level, unspecified, initial encounter; I50.9 Heart failure, unspecified; Z95.0 Presence of cardiac pacemaker; Z90.49 Acquired absence of other specified parts of digestive tract; Z90.710 Acquired absence of both cervix and uterus; Z79.82 Long term (current) use of aspirin; Z79.899 Other long term (current) drug therapy; E11.65 Type 2 diabetes mellitus with hyperglycemia; Z20.828 Contact with and (suspected) exposure to other viral communicable diseases
CPT/HCPCS: 36415; 36416; 36430; 36600; 71045; 72128; 72131; 72170; 74177; 76000; 76705; 78803; 80048; 80053; 81001; 82533; 83735; 83880; 84100; 84484; 85025; 85027; 85610; 85730; 86850; 86900; 86901; 87077; 87086; 87186; 87635; 93005; 93306; 96374; 96375; 96376; A9584; C1713; J0670; J0690; J0694; J1644; J1720; J1815; J2270; J2405; J2704; J3010; J3475; J7050; P9016; Q9967; S0028; U0003

== ENCOUNTER 2020-07-29 12:37 | Emergency (ER) | payer MEDICARE ==
[2020-07-29 13:55] LABS: Bilirubin Negative (Negative); Blood, Urine Trace (Negative); Clarity Turbid (Clear); Glucose, Urine (Dipstick) Normal (Negative); Ketone, Urine 10 mg/dL (Negative); Leukocyte 500 Leu/uL (Negative); Nitrite Negative (Negative); Protein, Urine (Dipstick) 30 mg/dL (Neg-Trace); RBC/HPF 0-3 HPF (0-3); Specific Gravity, Urine 1.019 (1.002-1.036); WBC/HPF Greater than 50 HPF (0-3); pH, Urine 5.5 (5.0-9.0)
--- NOTE | 2020-07-29 14:01 | RAD ---
RADIOGRAPH CHEST 1 VIEW: DATE: 07/29/2020 HISTORY: 85-year-old female with altered mental status. Concern for aspiration. FINDINGS: The thoracic aorta is tortuous and ectatic. There is no evidence of airspace density, cardiomegaly, p ulmonary edema, or pneumothorax. The lateral costophrenic angles are not effaced. Triple lead left subclavian AICD. IMPRESSION: 1) No acute pulmonary findings. 2) ectasia of thoracic aorta. 3) biventricular implantable cardioverter-defibrillator.
[2020-07-29 14:03] LABS: #Basophils 0.1 thou/uL (0.0-0.2); #Eosinphils 0.6 thou/uL (0.0-0.7); #Lymphocytes 2.6 thou/uL (1.20-3.40); #Monocytes 0.7 thou/uL (0.11-0.59); #Neutrophils 6.4 thou/uL (1.40-6.50); %Basophils 1.3 % (0.0-1.0); %Eosinophils 5.8 % (0.0-10.0); %Lymphocytes 24.9 % (21.0-51.0); %Monocytes 6.4 % (0.0-10.0); %Neutrophils 61.6 % (42.0-75.0); Hemoglobin 9.5 g/dL (12.0-16.0); Mean Corpuscular HGB CONC 32.7 g/dL (32.0-36.0); Mean Corpuscular Hemoglobin 31.3 pg (27.0-31.0); Mean Corpuscular Volume 95.6 fL (78.0-98.0); Mean Platelet Volume 6.6 fL (7.4-10.4); Platelet Count 292 thou/uL (130-400); RBC Distribution Width 15.9 % (11.5-14.5); Red Blood Cell (RBC) Count 3.02 mill/uL (4.20-5.40); White Blood Cell (WBC) Count 10.4 thou/uL (4.8-10.8)
[2020-07-29 14:04] LABS: Bacteria/HPF Rare-Few HPF (None Seen)
[2020-07-29 14:05] LABS: Yeast-Budding 1+ HPF (None Seen)
[2020-07-29 14:21] LABS: Anion Gap 12 mmol/L (10-20); BUN (Urea Nitrogen) 15 mg/dL (9.8-20.1); Calc. Creatinine Clearance 0 mL/min (70-130); Carbon Dioxide 25 mmol/L (23-31); Chloride 103 mmol/L (98-107); Estimated GFR-MDRD 66; Glucose 171 mg/dL (83-110); Potassium 4.2 mmol/L (3.5-5.1); Sodium 136 mmol/L (136-145)
[2020-07-29] MEDS ORDERED: cefTRIAXone\\ROCEPHIN 2 GM VIAL ONE (14:28)
[2020-07-29] MEDS ORDERED: Fluconazole 100 MG TAB PO SCH (14:45)
== END 2020-07-29 17:05 | disposition home or self-care (01) ==
LOC: ERS 12:37
DX: N30.90 Cystitis, unspecified without hematuria (principal); R41.0 Disorientation, unspecified; I25.10 Atherosclerotic heart disease of native coronary artery without angina pectoris; I50.9 Heart failure, unspecified; E78.2 Mixed hyperlipidemia; M81.0 Age-related osteoporosis without current pathological fracture; F32.9 Major depressive disorder, single episode, unspecified; Z79.899 Other long term (current) drug therapy; Z79.84 Long term (current) use of oral hypoglycemic drugs
CPT/HCPCS: 36415; 36416; 71045; 80048; 81003; 81015; 85025; 93005; 94760; 96365; J0696

== ENCOUNTER 2022-07-12 08:16 | Inpatient (IN) | payer MEDICARE ==
[2022-07-12 08:57] LABS: #Basophils 0.1 thou/uL (0.0-0.2); #Eosinphils 0.1 thou/uL (0.0-0.7); #Lymphocytes 2.1 thou/uL (1.20-3.40); #Neutrophils 8.7 thou/uL (1.40-6.50); %Basophils 0.7 % (0.0-1.0); %Eosinophils 0.9 % (0.0-10.0); %Lymphocytes 17.6 % (21.0-51.0); %Monocytes 8.2 % (0.0-10.0); %Neutrophils 72.7 % (42.0-75.0); Hemoglobin 12.2 g/dL (12.0-16.0); Mean Corpuscular HGB CONC 32.2 g/dL (32.0-36.0); Mean Corpuscular Hemoglobin 31.2 pg (27.0-31.0); Mean Corpuscular Volume 97.1 fL (78.0-98.0); Mean Platelet Volume 7.2 fL (7.4-10.4); Platelet Count 218 thou/uL (130-400); RBC Distribution Width 12.2 % (11.5-14.5); Red Blood Cell (RBC) Count 3.89 mill/uL (4.20-5.40); White Blood Cell (WBC) Count 11.9 thou/uL (4.8-10.8)
[2022-07-12 09:17] LABS: ALT (SGPT) 42 U/L (8-55); AST (SGOT) 198 U/L (5-34); Albumin 3.7 g/dL (3.4-4.8); Alkaline Phosphatase 158 U/L (40-110); Anion Gap 13 mmol/L (10-20); BUN (Urea Nitrogen) 14 mg/dL (9.8-20.1); Bilirubin, Total 2.5 mg/dL (0.2-1.2); Calc. Creatinine Clearance 0 mL/min (70-130); Calcium 9.4 mg/dL (7.8-10.44); Carbon Dioxide 27 mmol/L (23-31); Chloride 101 mmol/L (98-107); Estimated GFR 72; Globulin 3.4 g/dL (2.4-3.5); Glucose 150 mg/dL (83-110); Lipase 734 U/L (8-78); Potassium 3.3 mmol/L (3.5-5.1); Protein, Total 7.1 g/dL (5.8-8.1); Sodium 138 mmol/L (136-145)
[2022-07-12] MEDS ORDERED: Iopamidol 370 76% 100 ML VIAL ONE (09:53)
[2022-07-12] MEDS ORDERED: Ondansetron PF 4 MG/2 ML Vial IVP PRN (10:37)
[2022-07-12] MEDS ORDERED: Acetaminophen 325 MG TAB PO PRN (10:37)
[2022-07-12] MEDS ORDERED: HYDROcodone/Acetaminophen 5/325 mg Tablet PO PRN (10:37)
[2022-07-12] MEDS ORDERED: Senokot S 8.6-50 MG TAB PO PRN (10:37)
[2022-07-12] MEDS ORDERED: Guaifenesin DM 100-10/5 ML UDCUP PO PRN (10:37)
[2022-07-12 13:28] LABS: Bacteria/HPF 4+ HPF (None Seen); Bilirubin Negative (Negative); Blood, Urine 2+ (Negative); Clarity Turbid (Clear); Glucose, Urine (Dipstick) Normal (Negative); Ketone, Urine 10 mg/dL (Negative); Leukocyte 25 Leu/uL (Negative); Nitrite Negative (Negative); Protein, Urine (Dipstick) 50 mg/dL (Neg-Trace); Specific Gravity, Urine 1.016 (1.002-1.036); Squamous Epithelial 0-3 HPF (0-3); Urobilinogen 6 mg/dL (Less than 2)
[2022-07-12 15:46] VITALS: BMI 19.8
[2022-07-12] MEDS: Sodium Chloride 0.9% 1,000 ML IV SCH (17:03)
[2022-07-12] MEDS ORDERED: Piperacillin/Tazobactam 3.375 GM in Sodium Chloride 0.9% 100 ML IVPB SCH (18:00)
[2022-07-12] MEDS: Famotidine 20 MG TAB PO SCH (21:08)
[2022-07-12] MEDS: Piperacillin/Tazobactam 3.375 GM in Sodium Chloride 0.9% 100 ML IVPB SCH (21:19)
[2022-07-12] MEDS ORDERED: Piperacillin/Tazobactam 2.25 GM in Sodium Chloride 0.9% 100 ML IVPB SCH (22:00)
[2022-07-13] MEDS: Piperacillin/Tazobactam 3.375 GM in Sodium Chloride 0.9% 100 ML IVPB SCH ×3 (05:24→23:53)
[2022-07-13] MEDS: Sodium Chloride 0.9% 1,000 ML IV SCH (05:24)
[2022-07-13 05:52] LABS: #Basophils 0.1 thou/uL (0.0-0.2); #Eosinphils 0.3 thou/uL (0.0-0.7); #Lymphocytes 2.1 thou/uL (1.20-3.40); #Monocytes 0.7 thou/uL (0.11-0.59); #Neutrophils 3.9 thou/uL (1.40-6.50); %Basophils 0.8 % (0.0-1.0); %Eosinophils 3.7 % (0.0-10.0); %Lymphocytes 30.1 % (21.0-51.0); %Monocytes 9.8 % (0.0-10.0); %Neutrophils 55.5 % (42.0-75.0); Hemoglobin 10.5 g/dL (12.0-16.0); Mean Corpuscular Hemoglobin 31.1 pg (27.0-31.0); Mean Corpuscular Volume 97.1 fL (78.0-98.0); Mean Platelet Volume 7.1 fL (7.4-10.4); Platelet Count 186 thou/uL (130-400); RBC Distribution Width 12.2 % (11.5-14.5); Red Blood Cell (RBC) Count 3.39 mill/uL (4.20-5.40); White Blood Cell (WBC) Count 7.1 thou/uL (4.8-10.8)
[2022-07-13 06:17] LABS: ALT (SGPT) 158 U/L (8-55); AST (SGOT) 232 U/L (5-34); Albumin 3.2 g/dL (3.4-4.8); Alkaline Phosphatase 182 U/L (40-110); Anion Gap 12 mmol/L (10-20); BUN (Urea Nitrogen) 11 mg/dL (9.8-20.1); Calc. Creatinine Clearance 48 mL/min (70-130); Carbon Dioxide 25 mmol/L (23-31); Chloride 108 mmol/L (98-107); Cholesterol 143 mg/dl (< 200 Desired); Estimated GFR 80; Globulin 3.4 g/dL (2.4-3.5); Glucose 88 mg/dL (83-110); HDL Cholesterol 36 mg/dL (>60 Neg Risk); LDL Cholesterol, Calculated 89 mg/dL; Protein, Total 6.6 g/dL (5.8-8.1); Sodium 142 mmol/L (136-145); Triglycerides 88 mg/dL (Less than 150)
[2022-07-13 06:37] LABS: HBCM Index 0.04 S/CO (0-0.79); HBSAg Index 0.25 S/CO (0-0.99); Hep A IgM AB Non-Reactive (NonReactive); Hep A IgM S/CO 0.61 S/CO (0-0.79); Hep B Surf Ag Non-Reactive S/CO (NonReactive); Hep C IgG Ab Non-Reactive (NonReactive); Hep C Index 0.11 S/CO (0-0.79); Hepatitis B Core IgM Abs Non-Reactive (NonReactive)
[2022-07-13] MEDS ORDERED: Potassium Chloride 20 MEQ in Premix Bag 1 BAG IVPB SCH ×2 (08:00→13:00)
[2022-07-13] MEDS: Enoxaparin Sodium 30 MG/0.3 ML SYRINGE SC SCH ×2 (10:16→13:01)
[2022-07-13] MEDS: Famotidine 20 MG TAB PO SCH ×2 (10:16→20:17)
[2022-07-13] MEDS: Potassium Chloride 10 MEQ in Premix Bag 1 BAG IVPB SCH ×3 (10:58→13:08)
[2022-07-13] MEDS ORDERED: Loperamide HCl 2 MG CAP PO PRN (15:35)
[2022-07-13] MEDS ORDERED: [UNRECOGNIZED DRUG - OTHER] TOP PRN (15:35)
[2022-07-13] MEDS ORDERED: TROLAMINE SALICYLATE TOP PRN (15:35)
[2022-07-13] MEDS ORDERED: Bisacodyl 5 MG TAB PO PRN (15:35)
[2022-07-13] MEDS ORDERED: ALOE VERA TOP PRN (15:35)
[2022-07-13] MEDS ORDERED: Polyvinyl Alcohol 1.4%/Povidone 0.6% Opth Drops EA EYE PRN (15:35)
[2022-07-13] MEDS ORDERED: Ergocalciferol 1.25 MG(50,000 UNITS) CAP PO SCH (16:00)
[2022-07-13] MEDS: Carbidopa/Levodopa 25-100 mg Tablet PO SCH ×3 (18:01→23:51)
[2022-07-13] MEDS: traMADol HCl 50 MG TAB PO SCH (20:18)
[2022-07-13] MEDS: Carvedilol 25 MG TAB PO SCH (20:18)
[2022-07-13] MEDS: Melatonin 3 MG TAB PO SCH (23:51)
[2022-07-14] MEDS: Nystatin Powder 15 GM BOT TOP SCH ×3 (01:31→21:12)
[2022-07-14] MEDS: Piperacillin/Tazobactam 3.375 GM in Sodium Chloride 0.9% 100 ML IVPB SCH ×2 (05:29→14:54)
[2022-07-14] MEDS: Levothyroxine Sodium 100 MCG TAB PO SCH (05:29)
[2022-07-14 07:04] LABS: ALT (SGPT) 17 U/L (8-55); AST (SGOT) 82 U/L (5-34); Alkaline Phosphatase 134 U/L (40-110); Bilirubin, Direct 0.3 mg/dL (0.1-0.3); Bilirubin, Total 0.6 mg/dL (0.2-1.2); Lipase 16 U/L (8-78); Protein, Total 6.2 g/dL (5.8-8.1)
[2022-07-14] MEDS: Enoxaparin Sodium 30 MG/0.3 ML SYRINGE SC SCH (09:27)
[2022-07-14] MEDS: Carvedilol 25 MG TAB PO SCH ×2 (09:27→21:25)
[2022-07-14] MEDS: Aspirin Chewable 81 MG TAB PO SCH (09:27)
[2022-07-14] MEDS: Carbidopa/Levodopa 25-100 mg Tablet PO SCH ×4 (09:27→21:25)
[2022-07-14] MEDS: Ferrous Sulfate 325 MG TAB PO SCH (09:27)
[2022-07-14] MEDS: Famotidine 20 MG TAB PO SCH ×2 (09:28→21:28)
[2022-07-14] MEDS: Furosemide 20 MG TAB PO SCH (09:28)
[2022-07-14] MEDS: traMADol HCl 50 MG TAB PO SCH ×3 (09:28→21:25)
[2022-07-14] MEDS: Polyethylene Glycol 3350 17 GM Packet PO SCH (09:31)
[2022-07-14 11:00] LABS: Potassium 3.5 mmol/L (3.5-5.1)
[2022-07-14] MEDS: Melatonin 3 MG TAB PO SCH (21:25)
[2022-07-15] MEDS: Carbidopa/Levodopa 25-100 mg Tablet PO SCH ×3 (02:05→13:47)
[2022-07-15] MEDS: Melatonin 3 MG TAB PO SCH (02:42)
[2022-07-15] MEDS: Levothyroxine Sodium 100 MCG TAB PO SCH (06:07)
[2022-07-15] MEDS: Polyethylene Glycol 3350 17 GM Packet PO SCH ×2 (08:03→11:18)
[2022-07-15] MEDS: Furosemide 20 MG TAB PO SCH (08:03)
[2022-07-15] MEDS: traMADol HCl 50 MG TAB PO SCH ×2 (08:03→14:22)
[2022-07-15] MEDS: Carvedilol 25 MG TAB PO SCH (08:03)
[2022-07-15] MEDS: Ferrous Sulfate 325 MG TAB PO SCH (08:04)
[2022-07-15] MEDS: Enoxaparin Sodium 30 MG/0.3 ML SYRINGE SC SCH (08:04)
[2022-07-15] MEDS: Aspirin Chewable 81 MG TAB PO SCH (08:04)
[2022-07-15] MEDS: Famotidine 20 MG TAB PO SCH (08:04)
[2022-07-15] MEDS: Nystatin Powder 15 GM BOT TOP SCH (08:05)
[2022-07-15 13:31] VITALS: BP 137/71; TEMP 98.8
== END 2022-07-15 16:15 | DRG 440 ==
LOC: ERS 08:16 → ERHOLD 10:32 → OBSVTOIN 12:44 → T4-B 15:00
PROVIDERS: ADMIT Hospitalist; ATTEND Family Medicine
DX: K85.10 Biliary acute pancreatitis without necrosis or infection (principal); I25.10 Atherosclerotic heart disease of native coronary artery without angina pectoris; I50.9 Heart failure, unspecified; E03.9 Hypothyroidism, unspecified; E78.5 Hyperlipidemia, unspecified; E78.00 Pure hypercholesterolemia, unspecified; I11.0 Hypertensive heart disease with heart failure; M81.0 Age-related osteoporosis without current pathological fracture; G30.9 Alzheimer's disease, unspecified; F02.80 Dementia in other diseases classified elsewhere, unspecified severity, without behavioral disturbance, psychotic disturbance, mood disturbance, and anxiety; F32.A Depression, unspecified; I49.5 Sick sinus syndrome; M19.90 Unspecified osteoarthritis, unspecified site; K83.8 Other specified diseases of biliary tract; E87.6 Hypokalemia; G20 Parkinson's disease; Z20.822 Contact with and (suspected) exposure to COVID-19; Z79.84 Long term (current) use of oral hypoglycemic drugs; Z79.899 Other long term (current) drug therapy; Z95.0 Presence of cardiac pacemaker
CPT/HCPCS: 36415; 74177; 74181; 76705; 80053; 80061; 80074; 80076; 81003; 81015; 82248; 83690; 84132; 84484; 85025; 93005; 94760; 97139; J1650; J2543; J3480; J3490; J7050; Q9967; U0003; U0005

== ENCOUNTER 2023-03-04 11:55 | Inpatient (IN) | payer MEDICARE ==
[2023-03-04] MEDS ORDERED: Aspirin Chewable 81 MG TAB ONE (12:36)
[2023-03-04] MEDS ORDERED: Nitroglycerin 2% Ointment 1 INCH/1 GM Packet ONE (12:36)
[2023-03-04] MEDS ORDERED: Ondansetron PF 4 MG/2 ML Vial ONE (12:36)
[2023-03-04 12:58] LABS: #Basophils 0.1 thou/uL (0.0-0.2); #Eosinphils 0.2 thou/uL (0.0-0.7); #Lymphocytes 1.9 thou/uL (1.20-3.40); #Monocytes 0.9 thou/uL (0.11-0.59); #Neutrophils 7.7 thou/uL (1.40-6.50); %Basophils 0.5 % (0.0-1.0); %Eosinophils 1.9 % (0.0-10.0); %Lymphocytes 17.3 % (21.0-51.0); %Neutrophils 72.3 % (42.0-75.0); Hemoglobin 11.2 g/dL (12.0-16.0); Mean Corpuscular HGB CONC 32.4 g/dL (32.0-36.0); Mean Corpuscular Hemoglobin 30.8 pg (27.0-31.0); Mean Corpuscular Volume 95.1 fl (78.0-98.0); Mean Platelet Volume 7.3 fL (7.4-10.4); Platelet Count 195 10x3/uL (130-400); RBC Distribution Width 12.7 % (11.5-14.5); Red Blood Cell (RBC) Count 3.62 mill/uL (4.20-5.40); White Blood Cell (WBC) Count 10.7 10x3/uL (4.8-10.8)
[2023-03-04 13:22] LABS: Bacteria/HPF 4+ HPF (None Seen); Bilirubin Negative (Negative); Blood, Urine Negative (Negative); Clarity Clear (Clear); Glucose, Urine (Dipstick) Normal (Negative); Ketone, Urine Negative (Negative); Leukocyte 500 Leu/uL (Negative); Nitrite 2+ (Negative); Protein, Urine (Dipstick) Negative (Neg-Trace); RBC/HPF 0-3 HPF (0-3); Specific Gravity, Urine 1.014 (1.002-1.036); Squamous Epithelial 0-3 HPF (0-3); WBC/HPF 21-50 HPF (0-3)
[2023-03-04 13:23] LABS: ALT (SGPT) 9 U/L (8-55); AST (SGOT) 144 U/L (5-34); Albumin 3.5 g/dL (3.4-4.8); Alkaline Phosphatase 111 U/L (40-110); Anion Gap 12 mmol/L (10-20); BUN (Urea Nitrogen) 16 mg/dL (9.8-20.1); Bilirubin, Total 1.2 mg/dL (0.2-1.2); Calc. Creatinine Clearance 0 mL/min (70-130); Calcium 9.3 mg/dL (7.8-10.44); Carbon Dioxide 23 mmol/L (23-31); Chloride 102 mmol/L (98-107); Estimated GFR 71; Globulin 3.6 g/dL (2.4-3.5); Glucose 138 mg/dL (83-110); Lipase 514 U/L (8-78); Protein, Total 7.1 g/dL (5.8-8.1); Sodium 133 mmol/L (136-145)
[2023-03-04] MEDS ORDERED: Iopamidol-370 76% 500 ML MDV (1 ML CHARGE) ONE (14:09)
[2023-03-04] MEDS ORDERED: cefTRIAXone (ROCEPHIN) 1 GM VIAL ONE (14:17)
[2023-03-04] MEDS ORDERED: Ondansetron PF 4 MG/2 ML Vial IVP PRN ×2 (16:30→17:00)
[2023-03-04] MEDS ORDERED: Acetaminophen 325 MG TAB PO PRN ×2 (16:30→17:05)
[2023-03-04] MEDS ORDERED: Sodium Chloride 0.9% 1,000 ML IV SCH (16:30)
[2023-03-04] MEDS ORDERED: Ondansetron ODT 4 MG TAB SL PRN (16:30)
[2023-03-04 16:55] VITALS: BMI 27.4
[2023-03-04] MEDS ORDERED: Bisacodyl 5 MG TAB PO PRN (17:00)
[2023-03-04] MEDS ORDERED: Senokot S 8.6-50 MG TAB PO PRN (17:00)
[2023-03-04] MEDS ORDERED: Ondansetron ODT 4 MG TAB PO PRN (17:00)
[2023-03-04] MEDS ORDERED: Melatonin 3 MG TAB PO PRN (17:08)
[2023-03-04] MEDS ORDERED: Electrolyte Replacement Protocol 1 EACH FS SCH (17:15)
[2023-03-04] MEDS: Sodium Chloride 0.9% 1,000 ML IV SCH (17:41)
[2023-03-04] MEDS ORDERED: Nystatin Powder 15 GM BOT TOP PRN (18:03)
[2023-03-04] MEDS ORDERED: Dextrose 50% Abboject 50 ML SYRINGE SLOW IVP PRN (18:56)
[2023-03-04] MEDS ORDERED: Dextrose 5% in Water 1,000 ML IV PRN (18:56)
[2023-03-04] MEDS ORDERED: Morphine 4 MG/ML VIAL SLOW IVP PRN ×2 (19:55→19:56)
[2023-03-04] MEDS: Carvedilol 25 MG TAB PO SCH (20:15)
[2023-03-04] MEDS: Carbidopa/Levodopa 25-100 mg Tablet PO SCH ×2 (20:15→23:26)
[2023-03-05] MEDS: Sodium Chloride 0.9% 1,000 ML IV SCH ×4 (00:48→20:16)
[2023-03-05] MEDS: Levothyroxine Sodium 100 MCG TAB PO SCH (06:09)
[2023-03-05 08:29] LABS: #Lymphocytes 1.2 thou/uL (1.20-3.40); #Monocytes 1.2 thou/uL (0.11-0.59); #Neutrophils 10.8 thou/uL (1.40-6.50); %Basophils 0.2 % (0.0-1.0); %Eosinophils 0.2 % (0.0-10.0); %Lymphocytes 9.1 % (21.0-51.0); %Monocytes 8.7 % (0.0-10.0); %Neutrophils 81.8 % (42.0-75.0); Hemoglobin 10.3 g/dL (12.0-16.0); Mean Corpuscular HGB CONC 31.7 g/dL (32.0-36.0); Mean Corpuscular Hemoglobin 30.1 pg (27.0-31.0); Mean Corpuscular Volume 95.1 fl (78.0-98.0); Platelet Count 155 10x3/uL (130-400); RBC Distribution Width 12.8 % (11.5-14.5); Red Blood Cell (RBC) Count 3.42 mill/uL (4.20-5.40); White Blood Cell (WBC) Count 13.2 10x3/uL (4.8-10.8)
[2023-03-05 08:53] LABS: ALT (SGPT) 60 U/L (8-55); AST (SGOT) 370 U/L (5-34); Albumin 3.1 g/dL (3.4-4.8); Alkaline Phosphatase 174 U/L (40-110); Anion Gap 11 mmol/L (10-20); BUN (Urea Nitrogen) 17 mg/dL (9.8-20.1); Bilirubin, Total 1.2 mg/dL (0.2-1.2); Calc. Creatinine Clearance 42 mL/min (70-130); Carbon Dioxide 21 mmol/L (23-31); Chloride 107 mmol/L (98-107); Estimated GFR 50; Globulin 3.2 g/dL (2.4-3.5); Glucose 136 mg/dL (83-110); Lipase 13 U/L (8-78); Magnesium 1.8 mg/dL (1.6-2.6); Phosphorus 3.3 mg/dL (2.3-4.7); Potassium 4.1 mmol/L (3.5-5.1); Protein, Total 6.3 g/dL (5.8-8.1); Sodium 135 mmol/L (136-145)
[2023-03-05] MEDS ORDERED: [UNRECOGNIZED DRUG - OTHER] PO SCH (09:00)
[2023-03-05] MEDS ORDERED: ASCORBATE SOD PO SCH (09:00)
[2023-03-05] MEDS ORDERED: ARGININE PO SCH (09:00)
[2023-03-05] MEDS ORDERED: VITE AC PO SCH (09:00)
[2023-03-05] MEDS ORDERED: Magnesium 2 GM/50 ML(in water) 2 GM in Premix Bag 1 BAG IVPB SCH (09:15)
[2023-03-05] MEDS: Aspirin Chewable 81 MG TAB PO SCH (09:36)
[2023-03-05] MEDS: DULoxetine 20 MG CAP PO SCH (09:40)
[2023-03-05] MEDS: Carbidopa/Levodopa 25-100 mg Tablet PO SCH ×4 (09:40→20:17)
[2023-03-05] MEDS: Carvedilol 25 MG TAB PO SCH ×2 (09:40→20:17)
[2023-03-06] MEDS: Carbidopa/Levodopa 25-100 mg Tablet PO SCH ×3 (00:54→11:51)
[2023-03-06] MEDS: Sodium Chloride 0.9% 1,000 ML IV SCH (04:25)
[2023-03-06] MEDS: Levothyroxine Sodium 100 MCG TAB PO SCH (05:01)
[2023-03-06 07:12] LABS: #Eosinphils 0.3 thou/uL (0.0-0.7); #Lymphocytes 1.8 thou/uL (1.20-3.40); #Neutrophils 5.9 thou/uL (1.40-6.50); %Basophils 0.5 % (0.0-1.0); %Eosinophils 3.6 % (0.0-10.0); %Lymphocytes 19.7 % (21.0-51.0); %Monocytes 10.7 % (0.0-10.0); %Neutrophils 65.4 % (42.0-75.0); Hemoglobin 9.9 g/dL (12.0-16.0); Mean Corpuscular HGB CONC 31.9 g/dL (32.0-36.0); Mean Corpuscular Hemoglobin 30.7 pg (27.0-31.0); Mean Corpuscular Volume 96.1 fl (78.0-98.0); Mean Platelet Volume 8.1 fL (7.4-10.4); Platelet Count 153 10x3/uL (130-400); RBC Distribution Width 12.8 % (11.5-14.5); Red Blood Cell (RBC) Count 3.22 mill/uL (4.20-5.40); White Blood Cell (WBC) Count 9.1 10x3/uL (4.8-10.8)
[2023-03-06 07:29] LABS: Anion Gap 8 mmol/L (10-20); BUN (Urea Nitrogen) 14 mg/dL (9.8-20.1); Calc. Creatinine Clearance 55 mL/min (70-130); Calcium 8.5 mg/dL (7.8-10.44); Carbon Dioxide 21 mmol/L (23-31); Chloride 109 mmol/L (98-107); Estimated GFR 69; Glucose 102 mg/dL (83-110); Potassium 3.9 mmol/L (3.5-5.1); Sodium 134 mmol/L (136-145)
[2023-03-06 07:30] VITALS: BP 145/50; TEMP 99.2
[2023-03-06] MEDS: Carvedilol 25 MG TAB PO SCH (08:28)
[2023-03-06] MEDS: DULoxetine 20 MG CAP PO SCH (08:28)
[2023-03-06] MEDS: Aspirin Chewable 81 MG TAB PO SCH (08:29)
[2023-03-06 08:56] LABS: ALT (SGPT) 26 U/L (8-55); AST (SGOT) 127 U/L (5-34); Albumin 2.9 g/dL (3.4-4.8); Alkaline Phosphatase 151 U/L (40-110); Bilirubin, Direct 0.5 mg/dL (0.1-0.3); Bilirubin, Total 0.8 mg/dL (0.2-1.2); Protein, Total 6.1 g/dL (5.8-8.1)
[2023-03-06] MEDS ORDERED: Sulfameth/Trimethoprim DS 800-160mg TAB PO SCH ×2 (10:30→21:00)
[2023-03-06] MEDS ORDERED: cefTRIAXone\\ROCEPHIN 1 GM in Sodium Chloride 0.9% 100 ML IVPB SCH (14:00)
== END 2023-03-06 14:07 | DRG 689 ==
LOC: ERS 11:55 → T4-A 16:07
PROVIDERS: ADMIT Internal Medicine; ATTEND Hospitalist
DX: N30.00 Acute cystitis without hematuria (principal); K72.00 Acute and subacute hepatic failure without coma; I50.22 Chronic systolic (congestive) heart failure; Z66 Do not resuscitate; E78.5 Hyperlipidemia, unspecified; E11.9 Type 2 diabetes mellitus without complications; K21.9 Gastro-esophageal reflux disease without esophagitis; G30.9 Alzheimer's disease, unspecified; I11.0 Hypertensive heart disease with heart failure; E78.00 Pure hypercholesterolemia, unspecified; M81.0 Age-related osteoporosis without current pathological fracture; B96.20 Unspecified Escherichia coli [E. coli] as the cause of diseases classified elsewhere; F02.80 Dementia in other diseases classified elsewhere, unspecified severity, without behavioral disturbance, psychotic disturbance, mood disturbance, and anxiety; Z90.49 Acquired absence of other specified parts of digestive tract; Z79.82 Long term (current) use of aspirin; Z79.899 Other long term (current) drug therapy
CPT/HCPCS: 36415; 36416; 51701; 71045; 74177; 80048; 80053; 81003; 81015; 82550; 83690; 83735; 84100; 84484; 85025; 87077; 87086; 87186; 93005; 96365; 96375; 97139; J0696; J2270; J2405; J3475; J7050; Q9967